=== PATIENT | male | born 1945 | race Caucasian/White ===

== ENCOUNTER 2023-09-30 19:41 | Inpatient (IN) | payer OTHER, SELFPAY ==
[2023-09-20 09:48] VITALS: BMI 31.9
[2023-09-30] VITALS (18 sets, daily range): BP systolic 103–168; BP diastolic 62–87; PULSE 60–106; RESP 11–24; TEMP 36.3–36.5; O2SAT 94–100; BMI 31.9; BMI 33.5
--- NOTE | 2023-09-30 | DI.RAD.S_ITS ---
PROCEDURE: XR HIP W PEL IF DONE RT 2V INDICATIONS: INTRA OP RIGHT HIP TECHNIQUE: AP pelvis and lateral view of the right hip acquired. COMPARISON: None. FINDINGS: Patient is status post right hip arthroplasty, with hardware components in expected positions. IMPRESSION: Two intraoperative radiographs demonstrating right hip arthroplasty with prosthetic elements in appropriate position. Dictated by: Kellie Daniels M.D. on 09/30/2023 at 19:37 Approved by: Kellie Daniels M.D. on 09/30/2023 at 19:38
--- NOTE | 2023-09-30 06:00 | DI.RAD.S_ITS ---
PROCEDURE: XR HIP W PEL IF DONE RT 2V INDICATIONS: INNER OP TECHNIQUE: AP pelvis and lateral view of the right hip acquired. 3 images. COMPARISON: [facility], [place], XR HIP W PEL IF DONE RT 2V, 09/30/2023, 16:09. FINDINGS: Bones: Patient is status post right hip arthroplasty, with hardware components in expected positions. The hip joint appears congruent. The visualized bony structures appear intact. Soft tissues: Overlying postoperative changes are noted. No suspicious soft tissue densities. IMPRESSION: Expected post-operative appearance of the right hip arthroplasty. Dictated by: Jerry Yang M.D. on 10/01/2023 at 8:42 Approved by: Jerry Yang M.D. on 10/01/2023 at 8:43
[2023-09-30] MEDS: ACETAMINOPHEN 325 MG TABLET 975 MG PO (12:50)
[2023-09-30] MEDS: MELOXICAM 7.5 MG TABLET PO (12:51)
--- NOTE | 2023-09-30 12:53 | P.PN_ITS ---
Exam Vital Signs (past 8 hours): - 09/30/23 12:31 Temperature 97.3 F L Pulse Rate 60 Respiratory Rate 16 Blood Pressure 128/69 Pulse Oximetry 99 Oxygen Delivery Method Room Air Oxygen Delivery Method Room Air Narrative Exam Narrative: Spoke with Dr. Frederick Nails (lubrication equipment servicer) on 09/30/23 at 1250 regarding patient's history of paroxysmal Afib, pacemaker, and Warfarin use. Patient stopped taking Warfarin on 09/24/[address] Nails, he is cleared to have total hip replacement without requiring Lovenox bridge. He is to restart Warfarin one week after surgery. I personally educated patient about the risk of going into Afib and possible CVA. INR 1.1, EKG - Atrial-paced with prolonged AV conduction, rate 60. PFSH Medical History (Updated 09/20/23 @ 12:33 by Rahda Vale RN) Bradycardia Hx of diastolic dysfunction NSVT (nonsustained ventricular tachycardia) CAD (coronary artery disease) PAF (paroxysmal atrial fibrillation) Skin cancer Chronotropic incompetence History of cardioversion HLD (hyperlipidemia) HTN (hypertension) Post-nasal drip Afib Osteoarthritis Pacemaker (~2019) LAMBERTO on CPAP Surgical History (Updated 09/20/23 @ 10:23 by Radha Vale RN) H/O arthroscopy of right knee H/O arthroscopy of left knee Hx of tonsillectomy History of biopsy Social History household members: spouse Smoking Status: Never smoker alcohol intake: former
[2023-09-30] MEDS: LACTATED RINGERS 1,000 ML 42 ML IV ×3 (12:54→17:08)
[2023-09-30 12:58] LABS: INR 1.1 (0.9-1.3)
--- NOTE | 2023-09-30 13:19 | P.OP.PRE_ITS ---
Pre-operative Note Interval Note History & Physical reviewed/Exam performed by Physician: Yes Changes to H&P: No H&P completed within 30 days and has changed as indicated here:: Plan to resume warfarin one week postop. Will utilize aspirin 81 BID until that time. Plan discussed previously with patient's technology strategist
--- NOTE | 2023-09-30 13:49 | PM.OP.1 ---
Operative Date/Time/Diagnoses Date of procedure: 09/30/23 Pre-op diagnosis: Right hip arthritis Post-op diagnosis: same Procedure & Clinicians Procedure: Right total hip arthroplasty ([id number]) Same procedure as scheduled: Yes Surgeon: Neftali Tafoya Balance Wheel Facer: Feliciano Goodrich Anesthesia Type: Spinal, Sedation and Local Operative Notes Prosthetic devices, grafts, tissues, transplants, or devices: [place] 56 mm acetabular cup with modular dual mobility liner, size 8 high offset Actis stem, and +8 28 mm inner diameter, 49 mm outer diameter dual mobility head Estimated Blood Loss (mL): 800 Procedure in detail: This 78-year-old male patient was seen in clinic and evaluated for right hip pain. He was found to have radiographic findings consistent with severe arthritic changes in his hip and physical exam findings which correlated with this. He was counseled regarding the risks and benefits of surgery and wished to proceed. His past medical history was significant for the prior placement of a pacemaker for which he was maintained on warfarin. Due to concerns about the possibility of difficulty controlling his INR postoperatively I inquired with his digital marketing program manager regarding postoperative anticoagulation. I personally spoke with the digital marketing program manager and inquired as to the feasibility of transitioning him either to Lovenox or a DOAC due to my concerns about the potential bleeding risks associated with warfarin because of challenges with dosing which could result in the INR becoming elevated beyond desired parameters. His digital marketing program manager preferred to maintain him on warfarin therapy and felt that it would be appropriate to hold it for a week postoperatively. He recommended stopping it a week in advance of surgery. He did not feel that bridge therapy with an agent such as Lovenox would be necessary. The patient was met in the preoperative holding area and details of surgery were discussed at length. All questions were answered. Informed consent was signed in the operative site was marked. His preoperative INR was measured at 1.1. He was brought back to the operating room. The assistance of a physician driller's assistant was required throughout the procedure for room set up, positioning, soft tissue retraction, and wound closure. General anesthesia was induced. He was transferred to the [place] table and all bony prominences were padded. A time-out procedure was performed. Tranexamic acid and Ancef were administered prior to incision. A direct anterior approach the hip was utilized. The TFL was identified and the fascia overlying it was incised. Retractors were placed superior and inferior to the femoral neck and a self retainer was placed in the interval between the rectus and the TFL. The lateral circumflex vessels were identified and coagulated. A retractor was placed onto the anterior wall and reflected head of rectus was released under tension. At this time I noted bleeding coming from the ilium. This was slowed with electrocautery but continued to ooze.. I therefore performed a capsulotomy, placed tag stitches, and placed a soft tissue protector into the wound between rectus and TFL. Once this was tensioned up into the area around the ilium the bleeding. This successfully tamponaded the bleeding which had been encountered in that region. Cobra retractors were replaced intracapsularly inside the superior and inferior leaflets. The soft tissues were noted to continue to bleed more than normal diffusely throughout the wound. At this time I therefore elected to open a werewolf electrocautery device. This was able to slow the bleeding particularly coming from medial near the lesser trochanter and was utilized throughout the remainder of the procedure to attempt to limit blood loss. The lesser trochanter was identified and a neck resection was measured based off of preoperative templating based on that landmark. The neck was resected and a napkin ring was additionally resected. Both of these were removed. Retractors were placed onto the anterior and posterior wall. The labrum was resected sharply and the pulvinar was resected with the aid of the werewolf device. A 55 mm Reamer was used to ream to the floor of the acetabulum. Punctate bleeding bone was noted throughout the reamed hemisphere. I inserted a 56 mm cup and verified appropriate positioning in terms of anteversion and abduction angles on an AP fluoroscopic image which was matched to the preoperative standing radiograph. I elected not to place any screws as there was considerable bleeding occurring through the holes in the cup and I wanted to tamponade this as quickly as I could. I impacted in place a 36 mm liner and verified that it had achieved an appropriate seal with the acetabular cup. All retractors were removed. I performed a lateral capsular release off of the greater trochanter with the hip in neutral extension and traction. This position the lateral leaflet of the capsulotomy to be pulled over to the medial side. The hip was externally rotated to 90?. A [place] hook was placed underneath the femur and used to pull the hip away from the greater trochanter while hyperextending and adducting. Retractors were placed over the calcar and the greater trochanter and the hip was additionally rotated to 140?. In this position I was able to elevate the femur and gain access to the canal. The canal was opened bluntly with a rongeur and a rasp was used to clear cancellous bone. I broached up to a size 6 femur which was larger than the templated size of 5. Retractors were removed, the hip was carefully returned to neutral extension and reduced. It was noted to be significantly unstable with maximum external rotation as well as with a 45 degree drop test. Fluoroscopy indicated that the hip was short and that the stem was undersized. I therefore returned to the broaching and replaced all of the retractors. I noted that after trialing the broach did not have good rotational stability. I was able to broach from a size 6 up to a size 8. I had improved rotational stability with that size broach. The size 8 broach sat more proud than the size 6 broach and I had calcar planed with the size 6 broach so I anticipated a gap between the collar and calcar in my eventual implant. I placed a standard offset stem and a +5 head on the size 8 broach. I removed all the retractors and returned to neutral hip extension. I reduced the hip and noted appropriate fluoroscopic leg length on an AP pelvis which matched the preoperative standing radiograph however the patient was still unstable with maximum external rotation and a 45 degree drop test. I therefore removed the neck and head and replaced them with a high offset neck and a +8.5 head. With this combination I was able to achieve stability with a maximum external rotation test as well as a 45 degree drop test. I therefore returned to the broaching position, replaced all the retractors, and placed a size 8 high offset Actis stem. I placed a +8.5 head trial on that. I returned to the reduced position and again noted appropriate stability with maximum external rotation as well as a 45 degree drop test. I still noted however that the soft tissues felt somewhat lax and I was able to manually Shuck the hip several mm. I obtained fluoroscopy with this combination which indicated that I had likely increased his [place] offset and had also slightly lengthened him. I did not feel that I had excessively lengthened him or excessively increased his offset. The hip was stable with stability testing at this point as well. However due to the ongoing laxity they noted with manual testing I elected to convert to a dual mobility. I placed retractors over the anterior and posterior wall and placed the stem posterior to the acetabular component. I removed the polyethylene liner with 2 osteotomes, cleaned the inner surface of the cup, and impacted into place a dual mobility liner. I placed a +8.5 dual mobility head trial on the stem and repeated all the stability testing. The hip remained stable with that construct. I therefore opened the corresponding dual mobility head implants and assembled them on the back table, returned to the broach in position, replaced retractors, and impacted that head into place. I obtained fluoroscopy that indicated I had slightly lengthened and slightly increased the offset of the hip. I again performed a maximum external rotation test and a 45 degree drop test and had good stability with both. I closed the capsule with a running Ethibond suture and vigorously tested the stability of the hip. I maximally and forcefully externally rotated the hip by grabbing the [place] table boot and distracting and externally rotating is forcefully as I could. I was unable to dislocate the hip. The repair of the capsule remained intact with this vigorous stressing. I therefore based the soft tissues in a dilute mixture of Betadine and peroxide, and closed the hip using a combination of Stratafix and Monocryl sutures. During the closure of the superficial wound the anesthesiologist noted that the patient had had [address] elevations on the monitor. In anticipation potential need for aggressive anticoagulation I therefore elected to close the hip wound with running 3-0 Monocryl Stratafix suture and back this up with a running 2 0 nylon suture alternating between horizontal mattress and simple stitches. Additionally in anticipation of potential need for anticoagulation placed a clari incisional wound VAC dressing over the wound. The drapes were taken down and I placed a hip spica dressing around the hip again in anticipation of potential need for anticoagulation. An EKG was obtained in the operating room which did not demonstrate any ST elevations. Troponins were obtained which likewise did not demonstrate any elevations. The patient has a pacemaker and has remained in a appropriate paced rhythm without recurrence of the ST elevations which were noted during the surgery. Because of these EKG changes I have arranged to admit the patient to the ICU. I have called the tele assistant manager for our hospital as well as the on-call digital marketing program manager and consulted them regarding the patient's EKG changes during the surgery. Postoperatively he has had stable hemodynamics and appropriate mentation. He is currently being transported to the ICU for monitoring of his cardiac status Post-operative Plan for aftercare: 1. With regard to the patient's cardiac condition he is being monitored by the tele assistant manager at our hospital and is receiving ICU level care. I have ordered repeat troponins. His initial troponins were negative. I have also ordered a repeat CBC given the blood loss which was encountered during the surgery. His initial CBC indicated a hemoglobin of 12. 2. Should aggressive anticoagulation be needed due to the patient's cardiac condition it should not be held due to any considerations regarding his hip. I have placed nylon sutures, a incisional wound VAC, and a hip spica dressing over the wound. Are all which I would not otherwise have done in his case and our intended to limit any bleeding should he require aggressive anticoagulation due to his cardiac condition 3. He is weight-bearing as tolerated 4. He should follow anterior hip precautions 5. Follow up in 2 weeks with our clinic once he was eventually stable from a medical perspective to discharge home
[2023-09-30] MEDS: CEFAZOLIN 2 GM/100 ML PREMIX 100 ML IV ×2 (15:00→21:57)
[2023-09-30] MEDS: TRANEXAMIC ACID 1,000 MG VIAL 1000 MG INJ (15:00)
--- NOTE | 2023-09-30 15:27 | SUR.OPER ---
Patient supine on padded [place] table, bilateral arms on padded arm board at <90, both legs secured in padded traction boots and positioned per surgeon, padded post at patient's groin, genitals checked and free from pressure, pressure points checked and padded.
[2023-09-30] MEDS: ROPIVACAINE/EPI/CLONIDINE/KET 50 ML SYRINGE INJ (15:44)
--- NOTE | 2023-09-30 16:45 | SUR.OPER ---
Patient came in with gold colored ring. Placed in specimen container and labeled.
[2023-09-30 17:35] LABS: Add Manual Diff / Slide Review NO; Basophils Absolute Auto 100 /uL (0-100); Basophils Percent Auto 0.4 % (0-2); Eosinophils Absolute Auto 100 /uL (0-450); Eosinophils Percent Auto 0.7 % (2-4); Hematocrit 37.4 % (41-53); Hemoglobin 12.6 g/dL (13.5-17.5); Lymphocytes Absolute Auto 1300 /uL (1100-4500); Lymphocytes Percent Auto 8.5 % (25-40); Mean Corpuscular HGB Conc 33.7 % (30-36); Mean Corpuscular Hemoglobin 30.4 PG (26-34); Mean Corpuscular Volume 90.1 fL (80-100); Monocytes Absolute Auto 300 /uL (0-900); Monocytes Percent Auto 2.2 % (3-14); Neutrophils Absolute Auto 13300 /uL (1500-7000); Neutrophils Percent Auto 88.2 % (50-75); Platelet Count 203 X10^3/uL (150-400); Red Blood Cell Count 4.15 X10^6/uL (4.5-5.9); Red Cell Distribution Width 13.1 % (11.6-14.8); White Blood Cell Count 15.1 X10^3/uL (4.5-11.0)
[2023-09-30 18:27] LABS: Alanine Aminotransferase 16 IU/L (<50); Albumin Globulin Ratio 1.1 (1.0-2.8); Alkaline Phosphatase 74 U/L (38-126); Aspartate Aminotransferase 32 IU/L (17-59); BUN Creatinine Ratio 18.1 (6-22); Bilirubin Total 0.7 mg/dL (0.2-1.3); Blood Urea Nitrogen 15 mg/dL (9-20); Calcium 8.4 mg/dL (8.4-10.2); Carbon Dioxide 27 mmol/L (22-32); Chloride 106 mmol/L (98-107); Creatine Kinase 233 U/L (55-170); Estimated Glomerular Filt Rate > 60 mL/min (>60); Globulin 2.7 g/dL (1.7-4.1); Glucose 138 mg/dL (80-110); HEMOLYSIS < 15 (0-50); Potassium 4.4 mmol/L (3.4-5.1); Sodium 135 mmol/L (137-145); Total Protein 5.7 g/dL (6.3-8.2)
[2023-09-30 18:38] LABS: Troponin I < 0.012 ng/mL (0.01-0.034)
--- NOTE | 2023-09-30 18:43 | SUR.PHASEI ---
Patient to PACU with nursing staff and anesthesia, extubated prior to transfer. EKG done in OR due to possibility of previous arrythmia. No abnormalities noted on EKG per anesthesia. VSS on arrival to PACU; patient still not able to follow all commands and falls asleep easily. Awaiting results of Troponin. Dressing to right hip clean, dry and intact.
--- NOTE | 2023-09-30 19:14 | SUR.PHASEI ---
Patient remains confused. Able to tell this nurse his name and but still remains confused about his location and why he is in the hospital. Patient states that he thinks he's at home. Patient denies headache, blurred vision or any other neuro complaints. Following commands when prompted by nurse but remains confused. Dr Tafoya contacting hospitalist to obtain transfer to ICU.
[2023-09-30 19:40] LABS: Magnesium 1.7 mg/dL (1.6-2.3)
[2023-09-30] MEDS: METOPROLOL TARTRATE 5 MG/5 ML INJ IV (19:40)
--- NOTE | 2023-09-30 20:33 | SUR.PHASEI ---
Report given to JESUSITA Rosas; patient transferred to ICU room 227 in stable condition on apprentice stylist and oxygen at 3 liters via nasal cannula.
[2023-09-30 21:22] LABS: Creatine Kinase 452 U/L (55-170)
[2023-09-30 21:35] LABS: Troponin I < 0.012 ng/mL (0.01-0.034)
--- NOTE | 2023-09-30 21:41 | P.TELICUCN_ITS ---
History of Present Illness Consult details IF CAMERA ACTIVATED, patient seen via real-time interactive audiovisual communication: Camera activated Chief complaint: Right Total Hip Arthroplasty/Anterior Consent obtained for tele-hydrometallurgical engineer care: Yes Patient Location: ICU Provider location (State): [place] Other participants/roles: MD & RN Narrative: This 78-year-old male patient with H/O of HTN, pacemaker on warfarin, H/o of of severe Rt hip s/p arthroplasty, EBL 800 ML, intra operatively noted to have ST elevation on the monitor for about 2 min, 12 lead EKG was done and repeated multiple times negative for any specific ST or T wave changes, trop x 1 negative, pt HD stable intra operatively, currently denies any CP or discomfort or SOB Assessment: S/P Rt total hip arthroplasty Eval for ST elevation intra operatively S/P pacemaker HTN Plan: Trending Trop & EKG, pending 2 nd trop and CBC 2 D echo Card consulted, need medical records Pain mgt Has johnson/ close I/O Continue home lasix, metoprolol and lisinopril SCD PFSH Medical History (Updated 09/20/23 @ 12:33 by Radha Vale RN) Bradycardia Hx of diastolic dysfunction NSVT (nonsustained ventricular tachycardia) CAD (coronary artery disease) PAF (paroxysmal atrial fibrillation) Skin cancer Chronotropic incompetence History of cardioversion HLD (hyperlipidemia) HTN (hypertension) Post-nasal drip Afib Osteoarthritis Pacemaker (~2019) LAMBERTO on CPAP Surgical History (Updated 09/20/23 @ 10:23 by Radha Vale RN) H/O arthroscopy of right knee H/O arthroscopy of left knee Hx of tonsillectomy History of biopsy Social History household members: spouse Smoking Status: Never smoker alcohol intake: former Current Medications Current Medications Medications: Home Medications acetaminophen 500 mg tablet 1,000 mg PO Q6H PRN Pain 09/20/23 [History Confirmed 09/20/23] aspirin 81 mg capsule 81 mg PO DAILY 09/20/23 [History Confirmed 09/29/23] atorvastatin 40 mg tablet 40 mg PO BEDTIME 09/20/23 [History Confirmed 09/20/23] fluticasone propionate 50 mcg/actuation nasal spray,suspension 2 spray intranasal BEDTIME 09/20/23 [History Confirmed 09/20/23] furosemide 20 mg tablet 10 mg PO DAILY 09/20/23 [History Confirmed 09/20/23] lisinopril 5 mg tablet 5 mg PO DAILY 09/20/23 [History Confirmed 09/20/23] loratadine 10 mg tablet 10 mg PO DAILY 09/20/23 [History Confirmed 09/20/23] metoprolol succinate 25 mg tablet,extended release 24 hr 25 mg PO BID 09/20/23 [History Confirmed 09/20/23] montelukast 10 mg tablet 10 mg PO DAILY 09/20/23 [History Confirmed 09/20/23] potassium chloride 10 mEq capsule,extended release 10 meq PO DAILY 09/20/23 [History Confirmed 09/20/23] pregabalin 50 mg capsule 50 mg PO BID 09/20/23 [History Confirmed 09/20/23] warfarin 5 mg tablet 5 mg PO DIRECTED 09/20/23 [History Confirmed 09/29/23] Exam Vital Signs (past 8 hours): - 09/30/23 18:37 09/30/23 18:42 09/30/23 18:54 Temperature 97.4 F L Pulse Rate 68 68 67 Respiratory Rate 12 21 12 Blood Pressure 136/86 140/77 150/80 H Pulse Oximetry 98 98 99 Oxygen Delivery Method Nasal Cannula Nasal Cannula Nasal Cannula Oxygen Flow Rate 4 4 3 09/30/23 18:56 09/30/23 19:06 09/30/23 19:36 Temperature Pulse Rate 66 64 103 H Respiratory Rate 11 L 11 L 15 Blood Pressure 154/75 H 136/76 146/87 H Pulse Oximetry 97 96 98 Oxygen Delivery Method Room Air Nasal Cannula Nasal Cannula Oxygen Flow Rate 3 3 09/30/23 19:39 09/30/23 19:59 09/30/23 20:15 Temperature 97.5 F L Pulse Rate 95 H 98 H 65 Respiratory Rate 11 L 12 12 Blood Pressure 129/81 132/84 148/83 H Pulse Oximetry 98 96 99 Oxygen Delivery Method Nasal Cannula Nasal Cannula Nasal Cannula Oxygen Flow Rate 3 3 09/30/23 20:55 09/30/23 21:00 09/30/23 21:00 Temperature 97.7 F Pulse Rate 66 62 Respiratory Rate 14 12 Blood Pressure 134/72 Pulse Oximetry 100 98 Oxygen Delivery Method Oxygen Flow Rate 3 Oxygen Delivery Method Nasal Cannula Oxygen Flow Rate 3 Objective Labs 09/30/23 17:19 09/30/23 18:00 Labs: Laboratory Results - last 24 hr 09/30/23 09/30/23 09/30/23 11:48 17:18 17:19 WBC 15.1 H RBC 4.15 L Hgb 12.6 L Hct 37.4 L MCV 90.1 MCH 30.4 MCHC 33.7 RDW 13.1 Plt Count 203 Neut % (Auto) 88.2 H Lymph % (Auto) 8.5 L [place] % (Auto) 2.2 L Eos % (Auto) 0.7 L Baso % (Auto) 0.4 Neut # (Auto) 56907 H Lymph # (Auto) 1300 [place] # (Auto) 300 Eos # (Auto) 100 Baso # (Auto) 100 PT 13.0 H INR 1.1 Sodium Potassium Chloride Carbon Dioxide BUN Creatinine Estimated GFR BUN/Creatinine Ratio Glucose Calcium Magnesium Total Bilirubin AST ALT Alkaline Phosphatase Total Creatine Kinase Troponin I Total Protein Albumin Globulin Albumin/Globulin Ratio Blood Type O Positive Antibody Screen Negative Crossmatch See Detail 09/30/23 09/30/23 18:00 20:54 WBC RBC Hgb Hct MCV MCH MCHC RDW Plt Count Neut % (Auto) Lymph % (Auto) [place] % (Auto) Eos % (Auto) Baso % (Auto) Neut # (Auto) Lymph # (Auto) [place] # (Auto) Eos # (Auto) Baso # (Auto) PT INR Sodium 135 L Potassium 4.4 Chloride 106 Carbon Dioxide 27 BUN 15 Creatinine 0.83 Estimated GFR > 60 BUN/Creatinine Ratio 18.1 Glucose 138 H Calcium 8.4 Magnesium 1.7 Total Bilirubin 0.7 AST 32 ALT 16 Alkaline Phosphatase 74 Total Creatine Kinase 233 H 452 H D Troponin I < 0.012 < 0.012 Total Protein 5.7 L Albumin 3.0 L Globulin 2.7 Albumin/Globulin Ratio 1.1 Blood Type Antibody Screen Crossmatch
[2023-09-30] MEDS: ATORVASTATIN 20 MG TABLET 40 MG PO (21:57)
[2023-09-30] MEDS: DOCUSATE 100 MG CAPSULE PO (21:57)
[2023-09-30] MEDS: FLUTICASONE 120 SPRAY/16 GM SPRAY.SUSP NASAL (21:57)
[2023-09-30] MEDS: ACETAMINOPHEN 325 MG TABLET 650 MG PO (21:57)
[2023-09-30] MEDS: IBUPROFEN 600 MG TABLET PO (21:58)
[2023-09-30] MEDS: METOPROLOL ER 25 MG TABLET PO (21:58)
[2023-09-30] MEDS: PREGABALIN 50 MG CAPSULE PO (21:58)
[2023-09-30 22:19] LABS: MRSA (Nasal) PCR Not Detected (Not Detect)
[2023-09-30] MEDS: diphenhydrAMINE 50 MG/ML VIAL 25 MG IV (23:22)
[2023-09-30] MEDS: MAGNESIUM SULFATE 2 GM/50 ML PIGGYBACK IV (23:22)
[2023-10-01] VITALS (24 sets, daily range): BP systolic 103–139; BP diastolic 55–75; PULSE 60–104; RESP 11–26; TEMP 36.3–37; O2SAT 97–99
--- NOTE | 2023-10-01 00:29 | PC.NURSE ---
2039--rec'd pt from PACU awake and alert, denies c/o hip pain, chest pain, or sob; dressing and FLORINDA to right hip CDI; no family at bedside at this time; o2/3l/nc; NSR on monitor at this time
--- NOTE | 2023-10-01 00:39 | PC.NURSE ---
8023--Dr Tafoya at bedside; Dr Quinonez on monitor; status report given to both; they both spoke to pt and to each other; pt continues to deny any complaints at this time; clear liquids given po
--- NOTE | 2023-10-01 00:42 | PC.NURSE ---
7037--pt has converted to a wide complex rhythm with a rate in the low 100s; pt denies c/o chest pain or shortness of breath; he does report mild itching to arms and legs, which he reports getting at home when he takes metoprolol; video call with Dr Quinonez at pt's bedside; status report given and orders rec'd; benadryl 25mg iv and magnesium sulfate 2gm ivpb given
--- NOTE | 2023-10-01 00:49 | PC.NURSE ---
2303--pt reports tightness to back of right thigh; called Dr Tafoya; ok to remove FLORINDA; FLORINDA removed and pt reports immediate relief; dressing and clari drain to right hip CDI; pt denies numbness or tingling to right leg and foot; able to move leg and foot, but not lift leg off bed; denies c/o pain
[2023-10-01 02:13] LABS: Hematocrit 34.6 % (41-53)
[2023-10-01 02:51] LABS: Troponin I < 0.012 ng/mL (0.01-0.034)
[2023-10-01] MEDS: IBUPROFEN 600 MG TABLET PO ×3 (04:06→21:39)
[2023-10-01] MEDS: ACETAMINOPHEN 325 MG TABLET 650 MG PO ×3 (04:07→21:37)
[2023-10-01] MEDS: CEFAZOLIN 2 GM/100 ML PREMIX 100 ML IV (04:47)
[2023-10-01 06:04] LABS: Hematocrit 32.8 % (41-53); Hemoglobin 11.2 g/dL (13.5-17.5)
[2023-10-01 06:28] LABS: Troponin I < 0.012 ng/mL (0.01-0.034)
--- NOTE | 2023-10-01 06:53 | PC.NURSE ---
pt sleeping at this time; HR-60; bruising noted to right hip; dressing clean, dry, and intact; clari drain in place
--- NOTE | 2023-10-01 07:44 | PM.PNPO.1 ---
Subjective Subjective Date Patient Seen: 10/01/23 Time Patient Seen: 07:44 Interval history: Mr Choudhury was seen in conjunction w/ Dr Tafoya this morning. He is sitting up in bed and having very little pain. He reports he didn't sleep all night d/t anxiety over possible intraop ND. In review of records and speaking w/ Dr Tafoya, while the pts incision was being closed at the end of surgery yesterday, the anesthesiologist noticed a brief run of ST elevation on the monitor. Pts troponins have thus far been negative, and serial EKGs have also been normal. Teleintensivist mentioned 2D echo as part of their plan; unsure if this has been ordered. Pt has pacemaker and was on warfarin preoperatively; will restart this today rather than waiting a week as planned in light of possible ACS. Exam Vital Signs (past 8 hours): - 10/01/23 00:00 10/01/23 00:00 10/01/23 00:30 Temperature 97.3 F L Pulse Rate 104 H 101 H Respiratory Rate 13 13 Blood Pressure 106/75 Pulse Oximetry 97 97 Oxygen Flow Rate 3 10/01/23 01:00 10/01/23 01:00 10/01/23 02:00 Temperature Pulse Rate 100 H 61 Respiratory Rate 11 L 22 Blood Pressure 105/65 Pulse Oximetry 97 97 Oxygen Flow Rate 3 10/01/23 02:00 10/01/23 03:00 10/01/23 03:00 Temperature Pulse Rate 60 Respiratory Rate 16 Blood Pressure 103/68 108/59 L Pulse Oximetry 97 Oxygen Flow Rate 3 3 10/01/23 04:00 10/01/23 04:00 10/01/23 05:00 Temperature 97.5 F L Pulse Rate 60 61 Respiratory Rate 18 14 Blood Pressure 104/60 Pulse Oximetry 98 97 Oxygen Flow Rate 3 10/01/23 05:00 10/01/23 06:00 10/01/23 06:00 Temperature Pulse Rate 60 Respiratory Rate 15 Blood Pressure 106/57 L 107/56 L Pulse Oximetry 97 Oxygen Flow Rate 3 3 10/01/23 07:00 10/01/23 07:00 Temperature Pulse Rate 60 Respiratory Rate 15 Blood Pressure 107/58 L Pulse Oximetry 98 Oxygen Flow Rate Oxygen Delivery Method Nasal Cannula Oxygen Flow Rate 3 Narrative Exam Narrative: 5/5 strength in hip flexors, quadriceps, hamstrings, DF, PF, EHL on right. Sensation to light touch intact throughout RLE. Calf soft, compressible, nontender. DANIEL dressing functioning, CDI. Objective Labs 10/01/23 05:55 09/30/23 18:00 Labs: Laboratory Results - last 24 hr 09/30/23 09/30/23 09/30/23 11:48 17:18 17:19 WBC 15.1 H RBC 4.15 L Hgb 12.6 L Hct 37.4 L MCV 90.1 MCH 30.4 MCHC 33.7 RDW 13.1 Plt Count 203 Neut % (Auto) 88.2 H Lymph % (Auto) 8.5 L [place] % (Auto) 2.2 L Eos % (Auto) 0.7 L Baso % (Auto) 0.4 Neut # (Auto) 23969 H Lymph # (Auto) 1300 [place] # (Auto) 300 Eos # (Auto) 100 Baso # (Auto) 100 PT 13.0 H INR 1.1 Sodium Potassium Chloride Carbon Dioxide BUN Creatinine Estimated GFR BUN/Creatinine Ratio Glucose Calcium Magnesium Total Bilirubin AST ALT Alkaline Phosphatase Total Creatine Kinase Troponin I Total Protein Albumin Globulin Albumin/Globulin Ratio Nasal Screen MRSA (PCR) Blood Type O Positive Antibody Screen Negative Crossmatch See Detail 09/30/23 09/30/23 09/30/23 18:00 20:54 20:56 WBC RBC Hgb Hct MCV MCH MCHC RDW Plt Count Neut % (Auto) Lymph % (Auto) [place] % (Auto) Eos % (Auto) Baso % (Auto) Neut # (Auto) Lymph # (Auto) [place] # (Auto) Eos # (Auto) Baso # (Auto) PT INR Sodium 135 L Potassium 4.4 Chloride 106 Carbon Dioxide 27 BUN 15 Creatinine 0.83 Estimated GFR > 60 BUN/Creatinine Ratio 18.1 Glucose 138 H Calcium 8.4 Magnesium 1.7 Total Bilirubin 0.7 AST 32 ALT 16 Alkaline Phosphatase 74 Total Creatine Kinase 233 H 452 H D Troponin I < 0.012 < 0.012 Total Protein 5.7 L Albumin 3.0 L Globulin 2.7 Albumin/Globulin Ratio 1.1 Nasal Screen MRSA (PCR) Not detected Blood Type Antibody Screen Crossmatch 10/01/23 10/01/23 01:55 05:55 WBC RBC Hgb 12.0 L 11.2 L Hct 34.6 L 32.8 L MCV MCH MCHC RDW Plt Count Neut % (Auto) Lymph % (Auto) [place] % (Auto) Eos % (Auto) Baso % (Auto) Neut # (Auto) Lymph # (Auto) [place] # (Auto) Eos # (Auto) Baso # (Auto) PT INR Sodium Potassium Chloride Carbon Dioxide BUN Creatinine Estimated GFR BUN/Creatinine Ratio Glucose Calcium Magnesium Total Bilirubin AST ALT Alkaline Phosphatase Total Creatine Kinase Troponin I < 0.012 < 0.012 Total Protein Albumin Globulin Albumin/Globulin Ratio Nasal Screen MRSA (PCR) Blood Type Antibody Screen Crossmatch [facility] Medical History (Updated 09/20/23 @ 12:33 by Radha Vale RN) Bradycardia Hx of diastolic dysfunction NSVT (nonsustained ventricular tachycardia) CAD (coronary artery disease) PAF (paroxysmal atrial fibrillation) Skin cancer Chronotropic incompetence History of cardioversion HLD (hyperlipidemia) HTN (hypertension) Post-nasal drip Afib Osteoarthritis Pacemaker (~2019) LAMBERTO on CPAP Surgical History (Updated 10/01/23 @ 07:50 by Edelmira Emerson PA-C) H/O arthroscopy of right knee H/O arthroscopy of left knee Hx of tonsillectomy History of biopsy Social History household members: spouse Smoking Status: Never smoker alcohol intake: former Assessment & Plan Post-op Assessment and plan (1) S/P total hip arthroplasty: Assessment and Plan narrative: s/p R HÉCTOR, c/b a brief period of ST elevation changes at the end of the case. At this point, serial troponins and EKGs have been normal. Will transfer to acute medical unit and consult hospitalist service - I d/w Dr Tom this morning and he agreed to follow pt. Will restart warfarin at home dosing rate: 5mg on Fridays and Tuesdays, 7.5mg on other days. D/C johnson. Pt reports no h/o urinary retention. WBAT to right leg, start PT and OT today. Anticipate discharge home tomorrow w/ spouse pending progress w/ PT today and medical clearance from hospitalist service. Postoperative Procedures: Procedures Operation Date: 09/30/23 12:45 Actual Procedure Side Surgeon p Total Hip Arthroplasty/Anterior Approach Right Neftali Tafoya MD Postoperative day: 1 Quality VTE Deep Vein Thrombosis/Pulmonary Embolism Present on Admission: No
--- NOTE | 2023-10-01 07:51 | PM.CN ---
History of Present Illness Consult details Date Patient Seen: 10/01/23 Chief complaint: Right Total Hip Arthroplasty/Anterior Narrative: Robbie Choudhury is a 78yo M with PMH of NSVT s/p pacemaker, A-fib on warfarin, CAD, HTN, HLD, LAMBERTO and obesity who underwent R total hip on 09/30 and had 2min of intra-op ST elevation on monitor. Medicine consulted for management. Subsequent EKG's showed no ST elevation. Trops have been negative. Echo is ordered and pending. Patient may need nuclear stress test to risk stratify his level of coronary disease burden and if ST elevation seen on monitor was clinically significant despite all other testing being negative. Patient denies any recent chest pain. Says he has had 2 prior stress tests which were normal. Follows with Dr. Frederick Delong field checker in [place]. No NV, CP, SOB, abd pain or diarrhea currently. Meds Home Medications and Allergies Home Medications Medication Instructions Recorded Confirmed Type acetaminophen 500 mg tablet 1,000 mg PO Q6H PRN Pain 09/20/23 09/20/23 History aspirin 81 mg capsule 81 mg PO DAILY 09/20/23 09/29/23 History atorvastatin 40 mg tablet 40 mg PO BEDTIME 09/20/23 09/20/23 History fluticasone propionate 50 2 spray intranasal BEDTIME 09/20/23 09/20/23 History mcg/actuation nasal spray,suspension furosemide 20 mg tablet 10 mg PO DAILY 09/20/23 09/20/23 History lisinopril 5 mg tablet 5 mg PO DAILY 09/20/23 09/20/23 History loratadine 10 mg tablet 10 mg PO DAILY 09/20/23 09/20/23 History metoprolol succinate 25 mg 25 mg PO BID 09/20/23 09/20/23 History tablet,extended release 24 hr montelukast 10 mg tablet 10 mg PO DAILY 09/20/23 09/20/23 History potassium chloride 10 mEq 10 meq PO DAILY 09/20/23 09/20/23 History capsule,extended release pregabalin 50 mg capsule 50 mg PO BID 09/20/23 09/20/23 History warfarin 5 mg tablet 5 mg PO DIRECTED 09/20/23 09/29/23 History Allergies Allergy/AdvReac Type Severity Reaction Status Date / Time No Known Drug Allergies Allergy Verified 09/20/23 10:15 Review of Systems Review of Systems Narrative: All other systems reviewed with the patient and are negative unless otherwise stated. Exam Vital Signs (past 8 hours): - 10/01/23 00:00 10/01/23 00:00 10/01/23 00:30 Temperature 97.3 F L Pulse Rate 104 H 101 H Respiratory Rate 13 13 Blood Pressure 106/75 Pulse Oximetry 97 97 Oxygen Flow Rate 3 10/01/23 01:00 10/01/23 01:00 10/01/23 02:00 Temperature Pulse Rate 100 H 61 Respiratory Rate 11 L 22 Blood Pressure 105/65 Pulse Oximetry 97 97 Oxygen Flow Rate 3 10/01/23 02:00 10/01/23 03:00 10/01/23 03:00 Temperature Pulse Rate 60 Respiratory Rate 16 Blood Pressure 103/68 108/59 L Pulse Oximetry 97 Oxygen Flow Rate 3 3 10/01/23 04:00 10/01/23 04:00 10/01/23 05:00 Temperature 97.5 F L Pulse Rate 60 61 Respiratory Rate 18 14 Blood Pressure 104/60 Pulse Oximetry 98 97 Oxygen Flow Rate 3 10/01/23 05:00 10/01/23 06:00 10/01/23 06:00 Temperature Pulse Rate 60 Respiratory Rate 15 Blood Pressure 106/57 L 107/56 L Pulse Oximetry 97 Oxygen Flow Rate 3 3 10/01/23 07:00 10/01/23 07:00 Temperature Pulse Rate 60 Respiratory Rate 15 Blood Pressure 107/58 L Pulse Oximetry 98 Oxygen Flow Rate Oxygen Delivery Method Nasal Cannula Oxygen Flow Rate 3 Narrative Exam Narrative: GEN: no acute distress, obese HEENT: moist mucous membranes, PERRL NECK: trachea midline, no JVD CV: regular rate and rhythm, no murmurs PULM: clear bilaterally ABD: soft, nontender, nondistended, no organomegaly EXT: R postop hip dressing NEURO: awake, alert, oriented, no focal deficits Objective Labs 10/01/23 05:55 09/30/23 18:00 Labs: Laboratory Results - last 24 hr 09/30/23 09/30/23 09/30/23 11:48 17:18 17:19 WBC 15.1 H RBC 4.15 L Hgb 12.6 L Hct 37.4 L MCV 90.1 MCH 30.4 MCHC 33.7 RDW 13.1 Plt Count 203 Neut % (Auto) 88.2 H Lymph % (Auto) 8.5 L [place] % (Auto) 2.2 L Eos % (Auto) 0.7 L Baso % (Auto) 0.4 Neut # (Auto) 40636 H Lymph # (Auto) 1300 [place] # (Auto) 300 Eos # (Auto) 100 Baso # (Auto) 100 PT 13.0 H INR 1.1 Sodium Potassium Chloride Carbon Dioxide BUN Creatinine Estimated GFR BUN/Creatinine Ratio Glucose Calcium Magnesium Total Bilirubin AST ALT Alkaline Phosphatase Total Creatine Kinase Troponin I Total Protein Albumin Globulin Albumin/Globulin Ratio Nasal Screen MRSA (PCR) Blood Type O Positive Antibody Screen Negative Crossmatch See Detail 09/30/23 09/30/23 09/30/23 18:00 20:54 20:56 WBC RBC Hgb Hct MCV MCH MCHC RDW Plt Count Neut % (Auto) Lymph % (Auto) [place] % (Auto) Eos % (Auto) Baso % (Auto) Neut # (Auto) Lymph # (Auto) [place] # (Auto) Eos # (Auto) Baso # (Auto) PT INR Sodium 135 L Potassium 4.4 Chloride 106 Carbon Dioxide 27 BUN 15 Creatinine 0.83 Estimated GFR > 60 BUN/Creatinine Ratio 18.1 Glucose 138 H Calcium 8.4 Magnesium 1.7 Total Bilirubin 0.7 AST 32 ALT 16 Alkaline Phosphatase 74 Total Creatine Kinase 233 H 452 H D Troponin I < 0.012 < 0.012 Total Protein 5.7 L Albumin 3.0 L Globulin 2.7 Albumin/Globulin Ratio 1.1 Nasal Screen MRSA (PCR) Not detected Blood Type Antibody Screen Crossmatch 10/01/23 10/01/23 01:55 05:55 WBC RBC Hgb 12.0 L 11.2 L Hct 34.6 L 32.8 L MCV MCH MCHC RDW Plt Count Neut % (Auto) Lymph % (Auto) [place] % (Auto) Eos % (Auto) Baso % (Auto) Neut # (Auto) Lymph # (Auto) [place] # (Auto) Eos # (Auto) Baso # (Auto) PT INR Sodium Potassium Chloride Carbon Dioxide BUN Creatinine Estimated GFR BUN/Creatinine Ratio Glucose Calcium Magnesium Total Bilirubin AST ALT Alkaline Phosphatase Total Creatine Kinase Troponin I < 0.012 < 0.012 Total Protein Albumin Globulin Albumin/Globulin Ratio Nasal Screen MRSA (PCR) Blood Type Antibody Screen Crossmatch [facility] Medical History Bradycardia Hx of diastolic dysfunction NSVT (nonsustained ventricular tachycardia) CAD (coronary artery disease) PAF (paroxysmal atrial fibrillation) Skin cancer Chronotropic incompetence History of cardioversion HLD (hyperlipidemia) HTN (hypertension) Post-nasal drip Afib Osteoarthritis Pacemaker (~2019) LAMBERTO on CPAP Surgical History H/O arthroscopy of right knee H/O arthroscopy of left knee Hx of tonsillectomy History of biopsy Social History household members: spouse Tobacco & Substance Use Smoking Status: Never smoker alcohol intake: former Assessment & Plan Assessment & Plan narrative: # intraoperative ST elevation -2min of ST elevation seen on monitor per anesthesia -EKG have been normal, trops neg x4 -echo pending -should have outpatient stress test arranged with his field checker -keep mag >2 and K >4 -tele # s/p R total hip replacement on 09/30 -management per ortho # h/o NSVT and A-fib s/p pacemaker -continue warfarin per pharmacy with INR goal 2-3 -continue metoprolol # CAD -continue aspirin -stress test as above # HTN -continue lisinopril # HLD -continue statin Medicine will continue to follow. Thank you for allowing us to participate in the care of this patient. Should you have any questions, do not hesitate to speak with us directly or call us.
--- NOTE | 2023-10-01 08:04 | DI.ECHO.S_ITS ---
[facility] +---------+ : : [address] : : : : [place] : : : : [id number] : : : : Phone: [phone] Echocardiogram Report + + :Name: IZA ISBELL Study Date: 10/01/2023 Height: 68 in : :[facility] ReadingLocation: Weight: 220 lb : : Gender: Male BSA: 2.1 m2 : :: 1945 Age: 78 yrs BP: 107/58 mmHg: :Reason For Study: ST ELEVATION : :Ordering Physician: NELSY, : :CHUY Hong Performed By: Celsa Ortiz : :Referring: CHUY WHITTINGTON : + + Interpretation Summary The left ventricle is normal in size and wall thickness. Left ventricular systolic function appears normal without focal wall motion abnormalities. The ejection fraction is estimated to be 60-65%. The right ventricle is normal in size and function. The right ventricular systolic pressure is estimated to be at least 28 mmHg based on an estimated right atrial pressure of 3 mm Hg. The left atrial size is normal. There is no significant valvular heart disease. The aortic root is normal size. Procedure: A two-dimensional transthoracic echocardiogram with color flow and Doppler was performed. The study quality was technically adequate. There is no prior echocardiogram noted for this patient. The patient was in 60-63 during the exam. Left Ventricle: The left ventricle is normal in size and wall thickness. Left ventricular systolic function appears normal without focal wall motion abnormalities. The ejection fraction is estimated to be 60-65%. Diastolic parameters suggest probable normal left ventricular diastolic function and normal filling pressures. Right Ventricle: The right ventricle is normal in size and function. Atria: The left atrial size is normal. Right atrial size is normal. There is no Doppler evidence for an interatrial shunt. Mitral Valve: The mitral valve is normal in structure and function. There is trace mitral regurgitation. Aortic Valve: The aortic valve is trileaflet. The aortic valve opens well. There is no aortic valve stenosis. There is trace aortic regurgitation. Tricuspid Valve: The tricuspid valve is normal in structure and function. There is trace tricuspid regurgitation. The right ventricular systolic pressure is estimated to be at least 28 mmHg based on an estimated right atrial pressure of 3 mm Hg. Pulmonic Valve: The pulmonic valve leaflets are thin and pliable; valve motion is normal. There is a trace or physiologic amount of pulmonic regurgitation. There is no significant valvular heart disease. Great Vessels: The aortic root is normal size. The dimensions of the ascending aorta are normal. The IVC is of normal diameter and collapses greater than 50% with a sniff. This suggests a low right atrial pressure of 3 mm Hg. Pericardium/ Pleura There is no pericardial effusion. There is no pleural effusion. MMode/2D Measurements & Calculations LVIDd: 3.6 cm LVOT diam: 2.2 cm LVIDs: 2.4 cm Ao root diam: 3.3 cm FS: 35.1 % asc Aorta Diam: 3.2 cm IVSd: 1.0 cm LVPWd: 0.92 cm LV roman. diameter/BSA (cm/m^2): 1.7 LV sys. diameter/BSA (cm/m^2): 1.1 LA A2 area: 23.6 cm2 RA long axis: 4.4 cm LA A4 area: 19.7 cm2 RA area: 15.3 cm2 LA length (vol): 5.7 cm RA vol: 44.9 ml LA vol: 69.6 ml RA : 21.1 ml/m2 LA vol index: 32.7 ml/m2 IVC diam: 1.3 cm RVD1 (basal): 3.8 cm TAPSE: 2.5 cm Doppler Measurements & Calculations MV E max chris: 97.9 cm/sec TR max chris: 252.2 cm/sec MV A max chris: 68.3 cm/sec TR max P.4 mmHg MV E/A: 1.4 PA V2 max: 108.4 cm/sec MV dec time: 0.25 sec PA V2 mean: 77.8 cm/sec PA mean P.6 mmHg PA pr(Accel): 31.0 mmHg Reading Physician:03:12 PM
[2023-10-01] MEDS: FUROSEMIDE 20 MG TABLET 10 MG PO (08:20)
[2023-10-01] MEDS: LORATADINE 10 MG TABLET PO (08:20)
[2023-10-01] MEDS: ONDANSETRON 4 MG ODT PO (08:20)
[2023-10-01] MEDS: lisinopriL 5 MG TABLET PO (08:20)
[2023-10-01] MEDS: POTASSIUM CHLORIDE 10 MEQ TAB PO (08:22)
[2023-10-01] MEDS: DOCUSATE 100 MG CAPSULE PO ×2 (08:22→21:35)
[2023-10-01] MEDS: ASPIRIN 81 MG CHEW TAB PO (08:22)
[2023-10-01] MEDS: MONTELUKAST 10 MG TABLET PO (08:22)
[2023-10-01] MEDS: PREGABALIN 50 MG CAPSULE PO ×2 (08:22→21:35)
[2023-10-01] MEDS: MAGNESIUM CHLORIDE 64 MG TABLET 128 MG PO (08:24)
--- NOTE | 2023-10-01 09:00 | PT.IIE ---
Current Diagnoses Unilateral primary osteoarthritis, right hip (09/30/23) Presence of unspecified artificial hip joint (09/30/23) Surgery Performed Operation Date: 09/30/23 12:45 Actual Procedures p Total Hip Arthroplasty/Anterior Approach(Right) - Neftali Tafoya MD Surgical History (Last Reviewed 10/01/23 @ 07:52 by Jin Tom DO) H/O arthroscopy of left knee H/O arthroscopy of right knee History of biopsy Hx of tonsillectomy Medical History (Last Reviewed 10/01/23 @ 07:52 by Jin Tom DO) Afib Bradycardia CAD (coronary artery disease) Chronotropic incompetence History of cardioversion HLD (hyperlipidemia) HTN (hypertension) Hx of diastolic dysfunction NSVT (nonsustained ventricular tachycardia) LAMBERTO on CPAP Osteoarthritis Pacemaker (~2019) PAF (paroxysmal atrial fibrillation) Post-nasal drip Skin cancer Physical Therapy Inpatient Evaluation/Re-Eval M1 PT/OT-IP Prior Functional Status Start: 10/01/23 12:27 Freq: NEEDED Status: Active Protocol: Document 10/01/23 09:00 AB (Rec: 10/01/23 12:44 AB [email or web address]) Medical Review Prior Functional Status Communication able to make kelley known; has slight confusion Mobility and Gait pt stated that he was indpenednet with all mobilities and ambulation using a SPC for the last 2 months Social History Household Members spouse Living Arrangements House Number of Floors (Floors) Two Floors Number of Stairs To Enter/Railing? pt has a chair lift to get to 2nd level of the house has 1 step + 1 step without rails to enter the house Home Environment Standard Height Toilet,Walk in Shower Home Equipment Front Wheel Walker,Four Wheel Walker,Straight Cane,Raised Toilet Seat w/Armrests,Shower Seat without Backrest,Hand Held Shower,Cider Maker,Grab Bars In Shower M2 PT-IP Current Condition Start: 10/01/23 12:27 Freq: NEEDED Status: Active Protocol: Document 10/01/23 09:00 AB (Rec: 10/01/23 12:44 AB [id number]) Physical Therapy Current Condition Current Condition Evaluation Date 10/01/23 Treatment Diagnosis s/p R HÉCTOR anterior approach; difficulty in walking Onset Date 09/30/23 M3 PT-IP Subjective Start: 12/22/23 12:27 Freq: NEEDED Status: Active Protocol: Document 10/01/23 09:00 AB (Rec: 10/01/23 12:44 AB [id number]) Subjective Physical Therapy Visit Type Type Initial Evaluation Visit Start Time 09:00 Visit Stop Time 10:10 Total Visit Minutes 70 Number of COLLECTIONS CLERK Visits 0 Physical Therapy Visit Comments Patient Comments agreeable to do PT Therapy Pain Assessment Pain When Pain Assessed After Treatment Pain Present Pain Present Pain Reported Location Right Hip Scale Used pain scale not stated Pain Management Techniques Apply Cold,Distraction, Modification of Treatment,Re- positioning,Timing of Activity with Medications M4 PT-IP Mobility and Gait Start: 10/01/23 12:27 Freq: NEEDED Status: Active Protocol: Document 10/01/23 09:00 AB (Rec: 10/01/23 12:44 [email or web address]) PT-Bed Mobility Assessment Supine to Sit Supine to Sit Maximum Assistance,Head of Bed Elevated,Bedrails PT-Transfer Assessment Sit to and From Stand Sit to and from Stand Moderate Assistance,1 Person Assistance,Use of Upper Extremities Equipment Transfer Assistive Device Gait Belt,Front Wheeled Walker Orthotic/Prosthetic Devices or Brace: No Transfers Transfer Destination Chair Transfer Technique ambulated Transfer Ability Level of Assist Minimal Assistance,1 Person Assistance,Use of Upper Extremities Comments Mobility Comments pt supine in bed and agreeable to do PT. PLOF and home set up obtained. Post-op folder provided and reviewed contents . educated pt on anterior hip precautions for his RLE. pt with some confusion and memory issues requiring repeated cues with all tasks. BP in supine: 112/78 pt completed supine to sit max A and max cues. able to sit on EOB CGA. BP: 133/78. completed sit to stand mod A and cues. ambulated in room using FWW min A ~ 25 ft. presents with very slow paced guarded gait with decrease feet clearance and cues for anterior precautions for safety as pt has decrease carryover of precautions. pt agreed to sit on the chair. BP: 144/83. positioned pt on the chair. call light and table placed within reach. informed pt regarding caregiver training and agreed. set up for spouse to come in at 1pm this afternoon for training. Gait Assessment Gait Gait Assistance Required: Minimum Assistance Distance (Feet) 25 Able to Maintain Weight Bearing Status Yes During Gait Assistive Devices Assistive Device Gait Belt,Front Wheeled Walker Orthotic/Prosthetic Devices or Brace: No Gait Deviations General Gait Pattern Antalgic,Decreased Stride Length,Decreased Feet Clearance,Step-to Gait Factors Limiting Gait Function Factors Limiting Gait Function Decreased Activity Tolerance, Decreased Sensation,Decreased Strength,Limited Range of Motion,Pain,Poor Balance,Poor Safety Awareness,Respiratory Distress PT-Balance Assessment Sitting Balance and Reactions Static Sitting Balance Ability Normal Dynamic Sitting Balance Ability Good Standing Balance and Reactions Static Standing Balance Ability Fair Dynamic Standing Balance Ability Fair Device Used FWW M5 PT-IP Objective Assessments Start: 10/01/23 12:27 Freq: NEEDED Status: Active Protocol: Document 10/01/23 09:00 AB (Rec: 10/01/23 12:44 AB [id number]) Orientation Orientation/Cognition Level of Alertness Alert Orientation Name,Situation Language Function Ability Hard of Hearing Safety Awareness Decreased Safety Awareness Memory Description Short Term Impaired Gross Range of Motion Lower Extremity ROM Assessment Within Functional Limits Strength Lower Extremity Strength Assessment Right Impaired Hip 3-/5 Knee 4-/5 Sensation Assessment Sensation Sensation Description Numbness Comments Sensation Comments pt stated that he still has some numbness on R hip area Muscle Tone Muscle Tone WNL Yes M6 PT-IP Treatment Start: 10/01/23 12:27 Freq: NEEDED Status: Active Protocol: Document 10/01/23 09:00 AB (Rec: 10/01/23 12:44 AB [email or web address]) Physical Therapy Treatment Exercises Exercises Heel Slides Education Education Provided Precautions,Weight Bearing Status,Post-Op Packet,Safety Other Treatments Other Treatment Performed completed heels slide prior to mobility/PROM/MMT M7 PT-IP Assessment and Plan Start: 10/01/23 12:27 Freq: NEEDED Status: Active Protocol: Document 10/01/23 09:00 AB (Rec: 10/01/23 12:44 AB [email or web address]) PT Summary Assessment and Plan Potential Rehabilitation Potential Fair Status of Condition at Evaluation Evolving Summary Impairments Pain,ROM,Strength,Balance, Coordination,Sensation,Tone, Cognition,Bed Mobility, Transfers,Gait,Activity Tolerance Assessment Summary pt is a 78 y/o M s/p R HÉCTOR anterior approach. pt has R hip anterior precautions and is WBAT. pt currently requiring max A for supine to sit, mod A for sit to stand and min A for ambulation using FWW but only ambulated ~ 25 ft. pt requiring max cues with all tasks and requires consistent reminders for his hip precautions. pt lives with spouse and spouse to assist pt upon d/c. Caregiver training set up this afternoon at 1 pm. will continues to assess progress. d/c plan: SNF vs home with and HHPT. Goals Bed Mobility Goal Standby Assistance Transfer Goal Standby Assistance,Front Wheeled Walker Gait Goal Standby Assistance,Front Wheel Walker Gait Distance 200 Other Goals improve bed mobility, transfers and ambulation using LRAD ~ 300 ft mod I up/down 2 platform steps using FWW SBA Days to Meet Goals 5 Frequency of Treatment Frequency Of Treatment Twice a Day Treatment Plan Physical Therapy Treatment Plan Bed Mobility Training,Transfer Training,Gait Training, Therapeutic Exercise,Balance Retraining,Post Op Education, Discharge Planning,Hot or Cold Pack,Neuromuscular Re-ed, Coordination Retraining,Manual Therapy Precautions Anterior Hip Precautions No Hip Extension,No Hip External Rotation Weight Bearing Status Weight Bearing Status Weight Bear as Tolerated Allowed Weight Bearing Amount (enter % RLE WBAT or #) (%) Recommendations To Nursing Amount of Assist Needed 1 Person Assist Discharge Recommendations PT Discharge Recommendations Home with 03/05 Assist Available,Home Health,SNF Rehab,Home vs SNF Transportation Needs at Discharge Private Vehicle,Wheelchair/ Cabulance
[2023-10-01] MEDS: OXYCODONE IR 5 MG TABLET PO (11:17)
[2023-10-01] MEDS: ENOXAPARIN 40 MG/0.4 ML SYRINGE SUBCUT (11:18)
--- NOTE | 2023-10-01 11:18 | OT.IP.EVAL ---
Current Diagnoses Unilateral primary osteoarthritis, right hip (09/30/23) Presence of unspecified artificial hip joint (09/30/23) Surgery Performed Operation Date: 09/30/23 12:45 Actual Procedures p Total Hip Arthroplasty/Anterior Approach(Right) - Neftali Tafoya MD Past Medical History (Last Reviewed 10/01/23 @ 07:52 by Jin Tom DO) Afib Bradycardia CAD (coronary artery disease) Chronotropic incompetence History of cardioversion HLD (hyperlipidemia) HTN (hypertension) Hx of diastolic dysfunction NSVT (nonsustained ventricular tachycardia) LAMBERTO on CPAP Osteoarthritis Pacemaker (~2019) PAF (paroxysmal atrial fibrillation) Post-nasal drip Skin cancer Surgical History (Last Reviewed 10/01/23 @ 07:52 by Jin Tom DO) H/O arthroscopy of left knee H/O arthroscopy of right knee History of biopsy Hx of tonsillectomy Occupational Therapy Inpatient Evaluation/Re-Eval M1 PT/OT-IP Prior Functional Status Start: 10/01/23 11:17 Freq: NEEDED Status: Active Protocol: Document 10/01/23 11:19 [facility] (Rec: 10/01/23 11:39 [facility] [id number]) Medical Review Prior Functional Status Medical History Reviewed Yes Communication Independent Mobility and Gait Pt states had pain but did not use a device while ambulating . Activities of Daily Living and IADL's Pt states unable to do his socks anymore due to his pain. Prior Functional Level (Other details) Per pt his is not able to physically assist him at home due to her bad back and knee issues. Social History Household Members spouse Living Arrangements House Number of Floors (Floors) Two Floors Number of Stairs To Enter/Railing? 1 concrete step up to the porch and another step to get to the front door. Pt has a stair lift that his uses to get to the 2nd floor. Home Environment Standard Height Toilet,Walk in Shower Home Equipment Four Wheel Walker,Straight Cane,Raised Toilet Seat w/ Armrests,Shower Seat without Backrest,Hand Held Shower, Ekg Monitor Tech,Grab Bars In Shower Additional Social History Comment Pt states has a FWW and long handled shoe horn that he is unable to find in his house. M2 OT-IP Current Condition Start: 10/01/23 11:17 Freq: Status: Active Protocol: Document 10/01/23 11:19 [facility] (Rec: 10/01/23 11:39 [facility] [id number]) Occupational Therapy Current Condition Current Condition Evaluation Date 10/01/23 Treatment Diagnosis S/P R HÉCTOR anterior approach Diagnosis Onset Date 09/30/23 Post Operative Precautions Anterior Hip Precautions No Hip Extension,No Hip External Rotation M3 OT- IP Subjective and Pain Start: 10/01/23 11:17 Freq: Status: Active Protocol: Document 10/01/23 11:19 [facility] (Rec: 10/01/23 11:39 [facility] [id number]) OT- Subjective Occupational Therapy Visit Type Type Initial Evaluation Visit Start Time 10:50 Visit Stop Time 11:18 Total Visit Minutes 28 Occupational Therapy Visit Comments Patient Comments Pt agreed to get up. Baker Bread for ECHO came and therefore helping pt back to bed. Patient/Caregiver Goals To go to rehab. OT Pain Assessment Pain When Pain Assessed At Rest Pain Present Pain Present Pain Reported Location Right Hip Intensity 3 Scale Used Numeric (0 - 10) M4 OT- IP ADL's Start: 10/01/23 11:17 Freq: Status: Active Protocol: Document 10/01/23 11:19 [facility] (Rec: 10/01/23 11:39 [facility] [id number]) OT [id number] General Evaluation Self-Feeding Ability Independent OT ADL-Grooming Comments OT Grooming Comments Not performed, no issues anticipated. OT ADL-Oral Care Comments Oral Care Comments Not performed, no issues anticipated. OT ADL-Dressing General Eval Lower Body Dressing Ability Maximum Assistance Areas Needing Assistance Socks Comments OT Dressing Comments Pt not able to lift his leg up at this time and will need assist for get clothing over his feet. Pt will benefit from use of receptionist nurse and sock aid for LB dressing needs at this time. Pt will also benefit from practice so able to do on his own as his not able to assist. OT ADL-Toileting Comments OT Toileting Comments Pt not having to go. Educated pt to be mindful of his leg positioning while doing hygiene needs. In addition that standing may be easier in addition to use of wipes. OT ADL-Bathing Comments OT Bathing Comments Not performed. M5 OT- IP IADL's Start: 10/01/23 11:17 Freq: Status: Active Protocol: Document 10/01/23 11:19 [facility] (Rec: 10/01/23 11:39 [facility] [id number]) OT-Instrumental Activities of Daily Living Deficits IADL Deficits Identified Deficits Home Safety Awareness Awareness of Need for Assistance at Home Good Awareness Ability to Problem Solve Emergency Able to Problem Solve Situations Medication Management Medication Management No Deficits Identified Money Management Money Management No Deficits Identified Meal Preparation Meal Preparation Caregiver Provides Assist Automobile Tester Automobile Tester Caregiver Provides Assist M6 OT- IP Functional Cognition Start: 10/01/23 11:17 Freq: Status: Active Protocol: Document 10/01/23 11:19 [facility] (Rec: 10/01/23 11:39 [facility] [id number]) Cognitive Factors Limiting Selfcare Function Cognitive Ability Level of Alertness Alert Patient Orientation Name,Age,Birthday,Month,Date, Year,Day of Week,Place, Situation Attention Span Ability Capable of Focused Attention, Capable of Sustained Attention Ability to Follow Commands Able to Follow Multi-Step Commands Cognitive Comments Cognitive Assessment Comments Intact, pt able to recall and incorporate his hip precautions for ADL and mobility needs. OT- Vision and Hearing OT- Hearing Assessment OT- Hearing Assessment WFL OT- Vision Assessment Visual Acuity Glasses All The Time Visual Attentiveness WFL Occular Pursuits WFL M7 OT- IP Mobility and Balance Start: 10/01/23 11:17 Freq: Status: Active Protocol: Document 10/01/23 11:19 [facility] (Rec: 10/01/23 11:39 [facility] [id number]) OT- Bed Mobility Assessment Sit to Supine Sit to Supine Assist Moderate Assistance OT-Transfer Assessment Sit to and From Stand Sit to and from Stand Minimal Assistance Transfers Transfer Ability Minimal Assistance Technique Transfer Destination Bed,Chair Transfer Technique Stand Step Pivot Devices Transfer Assistive Devices Gait Belt,Front Wheeled Walker Comments Mobility Comments ZACHARY to help stand and will need more assist if coming up from a lower surface at this time. ZACHARY with FWW to transfer back to bed as pt a little unsteady on his feet. Pt needing MODA to help get back to bed as still unable to lift his RLE on his own. Educated of use of cane/gait belt to assist if needed. OT- Balance Assessment Sitting Balance and Reactions Static Sitting Balance Ability Good Dynamic Sitting Balance Ability Good Standing Balance and Reactions Static Standing Balance Ability Fair Dynamic Standing Balance Ability Fair M8 OT- IP Objective Assessments Start: 10/01/23 11:17 Freq: Status: Active Protocol: Document 10/01/23 11:19 [facility] (Rec: 10/01/23 11:39 [facility] [id number]) OT Gross Range of Motion Upper Extremity Range of Motion Assessment Within Functional Limits OT Strength Upper Extremity Strength Assessment Within Functional Limits M9 OT- IP Assessment and Plan Start: 10/01/23 11:17 Freq: Status: Active Protocol: Document 10/01/23 11:19 [facility] (Rec: 10/01/23 11:39 [facility] [id number]) OT Summary Assessment and Plan Potential Rehabilitation Potential Excellent Analytic Complexity at Evaluation Low Summary OT Impairments Pain,Balance,Functional Mobility,Dressing,Toileting, Bathing,Toilet Transfers, Shower Transfers Progress Towards Goals Progressing Toward Goals Assessment Summary Pt low complexity and main barriers are pain, needing assist to help get his RLE into and out of bed and needing assist for ADL's at this time. Pt using the fww and needing assist for steadying. Pt is very motivated and cooperative and will greatly benefit from short rehab stay so to be able to take care of himself for ADl and mobility needs as his is not able to physically assist him. Goals Dressing Goal Independent,Long Handled Shoe Horn,Ekg Monitor Tech,Sock Aid Toileting Goal Independent Bathing Goal Independent,Hand Held Shower Sprayer Toilet Transfer Goal Independent Shower Transfer Goal Independent Days to Meet Goals 10 Frequency of Treatment Frequency Of Treatment Once a Day Treatment Plan OT Treatment Plan ADL Training,Functional Mobility,Patient/Family Education,Discharge Planning Other Treatment Recommendations and Next Practice use of LB dressing Treatment Focus equipment. Discharge Recommendations OT Discharge Recommendations SNF Rehab Transportation Needs at Discharge Private Vehicle,Wheelchair/ Cabulance
--- NOTE | 2023-10-01 13:10 | PT.IPTN ---
Current Diagnoses Unilateral primary osteoarthritis, right hip (09/30/23) Presence of unspecified artificial hip joint (09/30/23) Surgery Performed Operation Date: 09/30/23 12:45 Actual Procedures p Total Hip Arthroplasty/Anterior Approach(Right) - Neftali Tafoya MD Physical Therapy Treatment Note M2 PT-IP Current Condition Start: 10/01/23 12:27 Freq: NEEDED Status: Active Protocol: Document 10/01/23 09:00 AB (Rec: 10/01/23 12:44 AB [email or web address]) Physical Therapy Current Condition Current Condition Evaluation Date 10/01/23 Treatment Diagnosis s/p R HÉCTOR anterior approach; difficulty in walking Onset Date 09/30/23 M3 PT-IP Subjective Start: 10/01/23 12:27 Freq: NEEDED Status: Active Protocol: Document 10/01/23 13:10 AB (Rec: 10/01/23 16:27 AB [id number]) Subjective Physical Therapy Visit Type Type Treatment Note Visit Start Time 13:10 Visit Stop Time 14:05 Total Visit Minutes 55 Number of CIRCULATION ASSISTANT Visits 0 Physical Therapy Visit Comments Patient Comments agreeable to do PT Therapy Pain Assessment Pain Present Pain Present Pain Reported Location Right Hip Scale Used pain scale not stated Pain Management Techniques Apply Cold,Distraction, Modification of Treatment,Re- positioning,Timing of Activity with Medications M4 PT-IP Mobility and Gait Start: 10/01/23 12:27 Freq: NEEDED Status: Active Protocol: Document 10/01/23 13:10 AB (Rec: 10/01/23 16:27 AB [id number]) PT-Bed Mobility Assessment Supine to Sit Supine to Sit Contact Guard Assistance, Minimal Assistance,Moderate Assistance,Bedrails Sit to Supine Sit to Supine Contact Guard Assistance, Minimal Assistance,Bedrails PT-Transfer Assessment Sit to and From Stand Sit to and from Stand Contact Guard Assistance,1 Person Assistance,Use of Upper Extremities Equipment Transfer Assistive Device Gait Belt,Front Wheeled Walker Orthotic/Prosthetic Devices or Brace: No Comments Mobility Comments pt supine in bed. spouse in room for caregiver training. Clarified d/c plan with pt due to OT stating that pt informed OT that he plans to go to rehab. Pt confirmed that he wants to go to SNF rehab due to spouse will be limited to the assistance she can provide due to her back problems. Pt stated that he is willing to pay out of pocket if needed. pt then declined caregiver training for spouse. educated spouse regarding pt's R hip anterior precautions and what to be aware of but no hand-on caregiver training conducted. pt completed supine to sit mod A and max cues. pt able to sit on EOB SBA. completed sit to stand CGA and ambulated in room using FWW cGA and cues ~ 40 ft. pt presents wtih very slow paced guarded gait and needs cues for precautions. pt requested to go back to bed . completed sit to supine min A and max cues for techniques. educated pt on supine<>sit techniques. pt completed another set of supine<>sit CGA . positioned pt on the bed. call light and table placed within reach. pt is determined to go to SNF. manager new product informed. Gait Assessment Gait Gait Assistance Required: Contact Guard Assist Distance (Feet) 40 Able to Maintain Weight Bearing Status Yes During Gait Assistive Devices Assistive Device Gait Belt,Front Wheeled Walker Orthotic/Prosthetic Devices or Brace: No Gait Deviations General Gait Pattern Antalgic,Decreased Feet Clearance Factors Limiting Gait Function Factors Limiting Gait Function Decreased Activity Tolerance, Decreased Strength,Difficulty Following Directions,Limited Range of Motion,Pain,Poor Balance,Poor Safety Awareness M5 PT-IP Objective Assessments Start: 10/01/23 12:27 Freq: NEEDED Status: Active Protocol: Document 10/01/23 09:00 AB (Rec: 10/01/23 12:44 AB [id number]) Orientation Orientation/Cognition Level of Alertness Alert Orientation Name,Situation Language Function Ability Hard of Hearing Safety Awareness Decreased Safety Awareness Memory Description Short Term Impaired Gross Range of Motion Lower Extremity ROM Assessment Within Functional Limits Strength Lower Extremity Strength Assessment Right Impaired Hip 3-/5 Knee 4-/5 Sensation Assessment Sensation Sensation Description Numbness Comments Sensation Comments pt stated that he still has some numbness on R hip area Muscle Tone Muscle Tone WNL Yes M6 PT-IP Treatment Start: 10/01/23 12:27 Freq: NEEDED Status: Active Protocol: Document 10/01/23 13:10 AB (Rec: 10/01/23 16:27 AB [id number]) Physical Therapy Treatment Education Education Provided Precautions,Weight Bearing Status,Safety M7 PT-IP Assessment and Plan Start: 10/01/23 12:27 Freq: NEEDED Status: Active Protocol: Document 10/01/23 13:10 AB (Rec: 10/01/23 16:27 AB [id number]) PT Summary Assessment and Plan Potential Rehabilitation Potential Good Summary Impairments Pain,ROM,Strength,Balance, Coordination,Sensation,Tone, Cognition,Bed Mobility, Transfers,Gait,Activity Tolerance Progress Towards Goals Progressing Toward Goals Assessment Summary pt improving with mobility and requiring CGA with bed mobility after training and cues, CGA with ambulation using FWW but with cues for hip precautions and safety. pt stated that his spouse will not be able to assist him due to spouse's back problems. pt will benefit from SNF rehab to improve overall strength and improve mobility independence prior to going home. Goals Bed Mobility Goal Standby Assistance Transfer Goal Standby Assistance,Front Wheeled Walker Gait Goal Standby Assistance,Front Wheel Walker Gait Distance 200 Other Goals improve bed mobility, transfers and ambulation using LRAD ~ 300 ft mod I up/down 2 platform steps using FWW SBA Days to Meet Goals 5 Frequency of Treatment Frequency Of Treatment Twice a Day Treatment Plan Physical Therapy Treatment Plan Bed Mobility Training,Transfer Training,Gait Training, Therapeutic Exercise,Balance Retraining,Post Op Education, Discharge Planning,Hot or Cold Pack,Neuromuscular Re-ed, Coordination Retraining,Manual Therapy Precautions Anterior Hip Precautions No Hip Extension,No Hip External Rotation Weight Bearing Status Weight Bearing Status Weight Bear as Tolerated Allowed Weight Bearing Amount (enter % RLE WBAT or #) (%) Recommendations To Nursing Amount of Assist Needed 1 Person Assist Discharge Recommendations PT Discharge Recommendations Home with 03/05 Assist Available,Home Health,SNF Rehab,Home vs SNF Transportation Needs at Discharge Private Vehicle,Wheelchair/ Cabulance
--- NOTE | 2023-10-01 13:22 | CM.DANOTE ---
Addendum entered by NEW Page 10/01/23 13:33: ADD: Patient reports he recently installed a stair lift in their home. Original Note: Initial DCP Assessment Note Pt is a 78 yo male, resident of [place] near [place], now POD#1 from Rt hip surgery by Dr Tafoya PCP: Luis Enrique Paul Payer: [facility] Reviewed chart, pt discussed in multidisciplinary rounds this morning. Hospitalist consulted for 2min of intra-op ST elevation on monitor. Met w/patient to introduce self and role. Patient lives with spouse in [place], active and indp w/cane at baseline. Patient has planned for return home w/sp to assist. No hx HH or SNF. Patient shares that he does have concern about his caring for him during recovery as she drinks approx. a bottle of wine or a 6 pack every night. Patient further states spouse had agreed to stop drinking for awhile in order to assist patient, spouse does not have hx of withdrawals per patient. Patient requests SNF search in [place] and discussion with [facility] re SNF auth as a back up plan. Discussed w/OT and RN. PT has scheduled caregiver training with spouse this afternoon. According to review of chart notes, patient may be too high functioning for a SNF auth through [facility]. Faxed updated therapy notes and medical prog notes to [facility], attempted contact w/[facility] DESI Bonner# [phone], had to leave a general message on an automated VM. CM team will plan to follow closely. Will wait on SNF search until auth discussed with [facility] CM- Patient may not qualify. Plan: Discharge either home w/sp (HH referral would be helpful) vs SNF, if [facility] would consider authorizing. 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 Yes Advance Directives on File No History Provided By Patient,Medical Record Prior Living Arrangements House Household Members spouse Type of transporation used prior to Drives own vehicle admit Independent with ADL's Yes Is patient alert and oriented? Yes Barriers to Discharge Yes Comment Spouse drinks heavily every night per patient. Patient concerned he will not have the assistance he needs if spouse does not abstain from drinking as she agreed to do. Transportation Arrangement TBD Additional Comment Will need SNF referrals in [place] depending on if [facility] will consider authorizing.
--- NOTE | 2023-10-01 16:18 | P.PN_ITS ---
Subjective Subjective Date Patient Seen: 10/01/23 Time Patient Seen: 16:10 Interval history: Followed up with pt POD #1 after R TKA with about [address] elevation during closure about 45 minutes before end of case. Pt has a [employer] pacemaker and is anticoagulated for hx of Afib, hx bradycardia, NSVT. From talking to pt, he says he has had two prior stress tests, one an exercise stress test and one nuclear stress test. He has had a couple of TEEs, at least one cardioversion, and an ablation done around 2016 with his pacemaker placed about a year after that. Pt is doing well, jovial and relaxed this afternoon. He denies any CP or anginal sx in past 24 hours or at all in the past five years. Chart and rhythm strips reviewed. Pt was A-paced on preop EKG. Postop EKG showed V-paced. Intraop rhythm strip showed what appears to be V-paced rhythm but with ST elevation, and pt's BP dropped below 80 systolic with HR >100. No medications were given within half an hour of rhythm change. Postop EKGs and rhythm strips have shown no ischemia. Troponins negative x 4. Echo done today was a normal study and showed EF 60-65% and no valvular abnormalities or wall motion abnormalities. Decision was made by hospitalist during my visit with him and the pt to hold off on doing a nuclear stress test, given all the negative findings, and have pt follow up after discharge with his under water assistant, Dr. Frederick Nails. Assessment/Plan: Intraoperative episode of nonsustained tachycardia with hypotension and ST elevation, reverted to V-pacing and later last night back to A-pacing as he was on preop EKG. Follow-up as per hospitalist and Dr. Tafoya. Exam Vital Signs (past 8 hours): - 10/01/23 09:00 10/01/23 09:00 10/01/23 09:08 Temperature Pulse Rate 60 60 Respiratory Rate 22 25 H Blood Pressure 114/55 L Pulse Oximetry 99 99 10/01/23 09:08 10/01/23 09:42 10/01/23 09:42 Temperature Pulse Rate 62 Respiratory Rate 22 Blood Pressure 111/64 139/65 Pulse Oximetry 10/01/23 10:00 10/01/23 10:25 10/01/23 10:30 Temperature 97.9 F Pulse Rate 62 63 61 Respiratory Rate 21 18 20 Blood Pressure 120/62 Pulse Oximetry 97 10/01/23 10:30 10/01/23 11:00 10/01/23 12:00 Temperature Pulse Rate 62 60 Respiratory Rate 23 16 Blood Pressure 120/62 Pulse Oximetry 10/01/23 13:00 10/01/23 14:00 10/01/23 15:00 Temperature Pulse Rate 60 60 60 Respiratory Rate 22 26 H 15 Blood Pressure Pulse Oximetry 10/01/23 15:38 10/01/23 15:38 Temperature 97.8 F Pulse Rate 62 Respiratory Rate 21 Blood Pressure 112/58 L Pulse Oximetry 98 Oxygen Delivery Method Nasal Cannula,CPAP Oxygen Flow Rate 3 Objective Labs 10/01/23 05:55 09/30/23 18:00 Labs: Laboratory Results - last 24 hr 09/30/23 09/30/23 09/30/23 17:18 17:19 18:00 WBC 15.1 H RBC 4.15 L Hgb 12.6 L Hct 37.4 L MCV 90.1 MCH 30.4 MCHC 33.7 RDW 13.1 Plt Count 203 Neut % (Auto) 88.2 H Lymph % (Auto) 8.5 L [place] % (Auto) 2.2 L Eos % (Auto) 0.7 L Baso % (Auto) 0.4 Neut # (Auto) 28009 H Lymph # (Auto) 1300 [place] # (Auto) 300 Eos # (Auto) 100 Baso # (Auto) 100 Sodium 135 L Potassium 4.4 Chloride 106 Carbon Dioxide 27 BUN 15 Creatinine 0.83 Estimated GFR > 60 BUN/Creatinine Ratio 18.1 Glucose 138 H Calcium 8.4 Magnesium 1.7 Total Bilirubin 0.7 AST 32 ALT 16 Alkaline Phosphatase 74 Total Creatine Kinase 233 H Troponin I < 0.012 Total Protein 5.7 L Albumin 3.0 L Globulin 2.7 Albumin/Globulin Ratio 1.1 Nasal Screen MRSA (PCR) Blood Type O Positive Antibody Screen Negative Crossmatch See Detail 09/30/23 09/30/23 10/01/23 20:54 20:56 01:55 WBC RBC Hgb 12.0 L Hct 34.6 L MCV MCH MCHC RDW Plt Count Neut % (Auto) Lymph % (Auto) [place] % (Auto) Eos % (Auto) Baso % (Auto) Neut # (Auto) Lymph # (Auto) [place] # (Auto) Eos # (Auto) Baso # (Auto) Sodium Potassium Chloride Carbon Dioxide BUN Creatinine Estimated GFR BUN/Creatinine Ratio Glucose Calcium Magnesium Total Bilirubin AST ALT Alkaline Phosphatase Total Creatine Kinase 452 H D Troponin I < 0.012 < 0.012 Total Protein Albumin Globulin Albumin/Globulin Ratio Nasal Screen MRSA (PCR) Not detected Blood Type Antibody Screen Crossmatch 10/01/23 05:55 WBC RBC Hgb 11.2 L Hct 32.8 L MCV MCH MCHC RDW Plt Count Neut % (Auto) Lymph % (Auto) [place] % (Auto) Eos % (Auto) Baso % (Auto) Neut # (Auto) Lymph # (Auto) [place] # (Auto) Eos # (Auto) Baso # (Auto) Sodium Potassium Chloride Carbon Dioxide BUN Creatinine Estimated GFR BUN/Creatinine Ratio Glucose Calcium Magnesium Total Bilirubin AST ALT Alkaline Phosphatase Total Creatine Kinase Troponin I < 0.012 Total Protein Albumin Globulin Albumin/Globulin Ratio Nasal Screen MRSA (PCR) Blood Type Antibody Screen Crossmatch [facility] Medical History Bradycardia Hx of diastolic dysfunction NSVT (nonsustained ventricular tachycardia) CAD (coronary artery disease) PAF (paroxysmal atrial fibrillation) Skin cancer Chronotropic incompetence History of cardioversion HLD (hyperlipidemia) HTN (hypertension) Post-nasal drip Afib Osteoarthritis Pacemaker (~2019) LAMBERTO on CPAP Surgical History H/O arthroscopy of right knee H/O arthroscopy of left knee Hx of tonsillectomy History of biopsy Social History household members: spouse Smoking Status: Never smoker alcohol intake: former Quality VTE Deep Vein Thrombosis/Pulmonary Embolism Present on Admission: No
[2023-10-01] MEDS: WARFARIN 5 MG TABLET PO (17:20)
[2023-10-01] MEDS: ATORVASTATIN 20 MG TABLET 40 MG PO (21:35)
[2023-10-01] MEDS: FLUTICASONE 120 SPRAY/16 GM SPRAY.SUSP NASAL (21:36)
[2023-10-02] VITALS (10 sets, daily range): BP systolic 103–146; BP diastolic 56–71; PULSE 60–109; RESP 16–19; TEMP 36–37.2; O2SAT 95–98
[2023-10-02] MEDS: ACETAMINOPHEN 325 MG TABLET 650 MG PO ×3 (02:46→20:31)
[2023-10-02 05:18] LABS: INR 1.2 (0.9-1.3); Prothrombin Time 13.6 SECONDS (9.4-12.5)
[2023-10-02 05:22] LABS: Add Manual Diff / Slide Review NO; Basophils Absolute Auto 0 /uL (0-100); Basophils Percent Auto 0.2 % (0-2); Eosinophils Absolute Auto 100 /uL (0-450); Eosinophils Percent Auto 0.5 % (2-4); Hemoglobin 9.8 g/dL (13.5-17.5); Lymphocytes Absolute Auto 1900 /uL (1100-4500); Lymphocytes Percent Auto 13.9 % (25-40); Mean Corpuscular Hemoglobin 30.8 PG (26-34); Mean Corpuscular Volume 90.6 fL (80-100); Monocytes Absolute Auto 1100 /uL (0-900); Monocytes Percent Auto 7.9 % (3-14); Neutrophils Absolute Auto 10700 /uL (1500-7000); Neutrophils Percent Auto 77.5 % (50-75); Platelet Count 153 X10^3/uL (150-400); Red Cell Distribution Width 13.4 % (11.6-14.8); White Blood Cell Count 13.8 X10^3/uL (4.5-11.0)
[2023-10-02 05:24] LABS: BUN Creatinine Ratio 25.9 (6-22); Blood Urea Nitrogen 21 mg/dL (9-20); Calcium 8.1 mg/dL (8.4-10.2); Carbon Dioxide 29 mmol/L (22-32); Chloride 103 mmol/L (98-107); Estimated Glomerular Filt Rate > 60 mL/min (>60); Glucose 127 mg/dL (80-110); HEMOLYSIS < 15 (0-50); Magnesium 2.2 mg/dL (1.6-2.3); Potassium 4.6 mmol/L (3.4-5.1); Sodium 136 mmol/L (137-145)
--- NOTE | 2023-10-02 07:53 | P.PN_ITS ---
Subjective Subjective Interval history: Patient was urinating and had some non-sustained runs of VT. He was asymptomatic. Mag and K normal. He is feeling much better today and was able to get up and use the restroom on his own. He thinks he'll be ok for home tomorrow with HH. Exam Vital Signs (past 8 hours): - 10/02/23 00:10 10/02/23 03:32 Temperature 98.0 F 96.8 F L Pulse Rate 62 60 Respiratory Rate 19 16 Blood Pressure 120/58 L 103/56 L Pulse Oximetry 98 95 Oxygen Delivery Method CPAP Oxygen Flow Rate 3 Narrative Exam Narrative: GEN: no acute distress, obese HEENT: moist mucous membranes, PERRL NECK: trachea midline, no JVD CV: regular rate and rhythm, no murmurs PULM: clear bilaterally ABD: soft, nontender, nondistended, no organomegaly EXT: R postop hip dressing NEURO: awake, alert, oriented, no focal deficits Objective Labs 10/02/23 04:30 10/02/23 04:30 Labs: Laboratory Results - last 24 hr 10/02/23 04:30 WBC 13.8 H RBC 3.20 L Hgb 9.8 L Hct 29.0 L MCV 90.6 MCH 30.8 MCHC 34.0 RDW 13.4 Plt Count 153 Neut % (Auto) 77.5 H Lymph % (Auto) 13.9 L [place] % (Auto) 7.9 Eos % (Auto) 0.5 L Baso % (Auto) 0.2 Neut # (Auto) 44766 H Lymph # (Auto) 1900 [place] # (Auto) 1100 H Eos # (Auto) 100 Baso # (Auto) 0 PT 13.6 H INR 1.2 Sodium 136 L Potassium 4.6 Chloride 103 Carbon Dioxide 29 BUN 21 H Creatinine 0.81 Estimated GFR > 60 BUN/Creatinine Ratio 25.9 H Glucose 127 H Calcium 8.1 L Magnesium 2.2 PFSH Medical History Bradycardia Hx of diastolic dysfunction NSVT (nonsustained ventricular tachycardia) CAD (coronary artery disease) PAF (paroxysmal atrial fibrillation) Skin cancer Chronotropic incompetence History of cardioversion HLD (hyperlipidemia) HTN (hypertension) Post-nasal drip Afib Osteoarthritis Pacemaker (~2019) LAMBERTO on CPAP Surgical History H/O arthroscopy of right knee H/O arthroscopy of left knee Hx of tonsillectomy History of biopsy Social History household members: spouse Smoking Status: Never smoker alcohol intake: former Assessment & Plan Assessment & Plan narrative: # intraoperative ST elevation -2min of ST elevation seen on monitor per anesthesia -EKG have been normal, trops neg x4 -echo reassuring with EF 60-65%, RVSP 28 and no valvular abnormalities -should have outpatient stress test arranged with his front end specialist Dr. Frederick Nails at [facility] -keep mag >2 and K >4 -tele # s/p R total hip replacement on 09/30 -management per ortho -HH with PT on discharge # h/o NSVT and A-fib s/p pacemaker -continue warfarin per pharmacy with INR goal 2-3 -continue metoprolol -had NSVT while in hospitla but asymptomatic, will f/up with outpatient cardiology regarding this # CAD -continue aspirin # HTN -continue lisinopril # HLD -continue statin Can discharge when ready from medicine standpoint. Medicine will sign off today. Thank you for allowing us to participate in the care of this patient. Should you have any further questions, do not hesitate to speak with us directly or call us. Quality VTE Deep Vein Thrombosis/Pulmonary Embolism Present on Admission: No
--- NOTE | 2023-10-02 08:52 | CM.DPNOTE ---
Addendum entered by NEW Barnes 10/02/23 14:55: From PT/provider/RN, after working with PT and speaking with provider again, pt changed mind and decided he wanted to dc home. Pt confirmed he wants to go home with spouse support. Agreeable to HH, no preference on agency. Reports can drive him home tomorrow morning and he has all the equip he needs. ANALYTICAL SCIENCES DIRECTOR completed face to face, ANALYTICAL SCIENCES DIRECTOR completed HH order. ANALYTICAL SCIENCES DIRECTOR spoke with Hanh at [facility], agreed to review and forward to ariel office for [facility]. ANALYTICAL SCIENCES DIRECTOR faxed face sheet, face to face, order, H&P, PN, PT/OT eval, and PT notes to [facility]. Acceptance pending. Face to face placed in scanning folder. Plan: home with spouse support 10/03. [facility] likely to follow pending acceptance. CM team will continue to follow closely. NEW Barnes Addendum entered by NEW Barnes 10/02/23 11:23: ANALYTICAL SCIENCES DIRECTOR spoke with Aiyana at [facility] (p [phone] email [email or web address]). Agreed to review, reports cannot accept until tomorrow. Our team would need to arrange transport. ANALYTICAL SCIENCES DIRECTOR emailed initial referral information for review. SL Original Note: DCP Note ANALYTICAL SCIENCES DIRECTOR reviewed EMR. ANALYTICAL SCIENCES DIRECTOR received VM for Patricia- case worker at [facility]. Authorized SNF stay for pt, auth #[id number]. ANALYTICAL SCIENCES DIRECTOR spoke with pt at bedside. Confirms wants to go to SNF because he cannot walk. Preference is [facility] in [facility] due to pt living in [place]. SNF search is as following [facility]- lvm with Nataly (p [phone]) [facility]- lvm with Nataly (p [phone]) [facility]- lvm with Asya (p [phone]) Franny Membreno from admissions reports can accept pt, but unable to admit anyone until 10-05 [facility] - lvm with admissions, clerical receptionist said they likely couldn't accept until 10-05 at least CM team will continue to follow closely and pursue SNF per pt preference and SNF availability. NEW Barnes
[2023-10-02] MEDS: DOCUSATE 100 MG CAPSULE PO ×2 (08:59→20:33)
[2023-10-02] MEDS: MONTELUKAST 10 MG TABLET PO (09:01)
[2023-10-02] MEDS: POTASSIUM CHLORIDE 10 MEQ TAB PO (09:02)
[2023-10-02] MEDS: PREGABALIN 50 MG CAPSULE PO ×2 (09:02→20:32)
[2023-10-02] MEDS: ASPIRIN 81 MG CHEW TAB PO (09:03)
[2023-10-02] MEDS: FUROSEMIDE 20 MG TABLET 10 MG PO (09:03)
[2023-10-02] MEDS: METOPROLOL ER 25 MG TABLET PO ×2 (09:03→20:32)
[2023-10-02] MEDS: LORATADINE 10 MG TABLET PO (09:03)
[2023-10-02] MEDS: ENOXAPARIN 40 MG/0.4 ML SYRINGE SUBCUT (09:04)
--- NOTE | 2023-10-02 10:18 | PT.IPTN ---
Current Diagnoses Unilateral primary osteoarthritis, right hip (09/30/23) Presence of unspecified artificial hip joint (09/30/23) Surgery Performed Operation Date: 09/30/23 12:45 Actual Procedures p Total Hip Arthroplasty/Anterior Approach(Right) - Neftali Tafoya MD Physical Therapy Treatment Note M2 PT-IP Current Condition Start: 10/01/23 12:27 Freq: NEEDED Status: Active Protocol: Document 10/01/23 09:00 AB (Rec: 10/01/23 12:44 AB [id number]) Physical Therapy Current Condition Current Condition Evaluation Date 10/01/23 Treatment Diagnosis s/p R HÉCTOR anterior approach; difficulty in walking Onset Date 09/30/23 M3 PT-IP Subjective Start: 10/01/23 12:27 Freq: NEEDED Status: Active Protocol: Document 10/02/23 10:36 TS (Rec: 10/02/23 10:53 TS [id number]) Subjective Physical Therapy Visit Type Type Treatment Note Visit Start Time 10:18 Visit Stop Time 10:37 Total Visit Minutes 19 Number of PICU NURSE Visits 1 Physical Therapy Visit Comments Patient Comments Pt found up with nursing, agreeable to PT. Therapy Pain Assessment Pain When Pain Assessed During Mobility Pain Present Pain Present Pain Reported M4 PT-IP Mobility and Gait Start: 10/01/23 12:27 Freq: NEEDED Status: Active Protocol: Document 10/02/23 10:36 TS (Rec: 10/02/23 10:53 TS [id number]) PT-Transfer Assessment Sit to and From Stand Sit to and from Stand Standby Assistance,1 Person Assistance,Use of Upper Extremities Equipment Transfer Assistive Device Gait Belt,Front Wheeled Walker Orthotic/Prosthetic Devices or Brace: No Comments Mobility Comments Pt ambulated ~60'SBA with step to gait, demonstrates good awareness of his hip precautions. He performed steps x3 on platform step with use of FWW CGA, pt provided cues for step sequencing. He ambulated to chair, performed sit to stand with FWW and BUE support SBA. Pt was left in chair, all needs met. Gait Assessment Gait Gait Assistance Required: Standby Assistance Distance (Feet) 60 Able to Maintain Weight Bearing Status Yes During Gait Assistive Devices Assistive Device Gait Belt,Front Wheeled Walker Orthotic/Prosthetic Devices or Brace: No Gait Deviations General Gait Pattern Antalgic,Decreased Feet Clearance Factors Limiting Gait Function Factors Limiting Gait Function Decreased Activity Tolerance, Decreased Strength,Difficulty Following Directions,Limited Range of Motion,Pain,Poor Balance,Poor Safety Awareness Comments Gait Comments See mobility comments Stair Climbing Assessment Evaluation Level of Assist On Stairs Contact Guard Assistance,1 Person Assistance Devices Stair Climbing Assistive Devices Front Wheel Walker Technique/Endurance Stair Climbing Direction Ascend and Descend Stair Climbing Technique Step to Step Number of Steps Climbed 3 Comments Stair Climbing Comments See mobility comments PT-Balance Assessment Sitting Balance and Reactions Static Sitting Balance Ability Normal Dynamic Sitting Balance Ability Good Standing Balance and Reactions Static Standing Balance Ability Good Dynamic Standing Balance Ability Good Device Used FWW M5 PT-IP Objective Assessments Start: 10/01/23 12:27 Freq: NEEDED Status: Active Protocol: Document 10/01/23 09:00 AB (Rec: 10/01/23 12:44 AB [id number]) Orientation Orientation/Cognition Level of Alertness Alert Orientation Name,Situation Language Function Ability Hard of Hearing Safety Awareness Decreased Safety Awareness Memory Description Short Term Impaired Gross Range of Motion Lower Extremity ROM Assessment Within Functional Limits Strength Lower Extremity Strength Assessment Right Impaired Hip 3-/5 Knee 4-/5 Sensation Assessment Sensation Sensation Description Numbness Comments Sensation Comments pt stated that he still has some numbness on R hip area Muscle Tone Muscle Tone WNL Yes M6 PT-IP Treatment Start: 10/01/23 12:27 Freq: NEEDED Status: Active Protocol: Document 10/02/23 10:36 TS (Rec: 10/02/23 10:53 TS [id number]) Physical Therapy Treatment Education Education Provided Precautions,Weight Bearing Status,Safety M7 PT-IP Assessment and Plan Start: 10/01/23 12:27 Freq: NEEDED Status: Active Protocol: Document 10/02/23 10:36 TS (Rec: 10/02/23 10:53 TS [id number]) PT Summary Assessment and Plan Potential Rehabilitation Potential Good Summary Impairments Pain,ROM,Strength,Balance, Coordination,Sensation,Tone, Cognition,Bed Mobility, Transfers,Gait,Activity Tolerance Progress Towards Goals Progressing Toward Goals Assessment Summary Robbie is making good progress with his mobility. He is SBA for ambulation of ~60' with use of FWW. He performed platform steps x3 with use of FWW CGA with little effort. PT is recommending Home vs SNF at this time. Pt would like to go to SNF out of concern of spouse not being able to assist him. If pt were to go home would benefit from HHPT. Goals Bed Mobility Goal Standby Assistance Transfer Goal Standby Assistance,Front Wheeled Walker Gait Goal Standby Assistance,Front Wheel Walker Gait Distance 200 Other Goals improve bed mobility, transfers and ambulation using LRAD ~ 300 ft mod I up/down 2 platform steps using FWW SBA Days to Meet Goals 5 Frequency of Treatment Frequency Of Treatment Twice a Day Treatment Plan Physical Therapy Treatment Plan Bed Mobility Training,Transfer Training,Gait Training, Therapeutic Exercise,Balance Retraining,Post Op Education, Discharge Planning,Hot or Cold Pack,Neuromuscular Re-ed, Coordination Retraining,Manual Therapy Precautions Anterior Hip Precautions No Hip Extension,No Hip External Rotation Weight Bearing Status Weight Bearing Status Weight Bear as Tolerated Allowed Weight Bearing Amount (enter % RLE WBAT or #) (%) Recommendations To Nursing Amount of Assist Needed 1 Person Assist Discharge Recommendations PT Discharge Recommendations Home with Assistance,Home Health,SNF Rehab,Home vs SNF Transportation Needs at Discharge Private Vehicle,Wheelchair/ Cabulance
--- NOTE | 2023-10-02 11:06 | PM.PNPO.1 ---
Subjective Subjective Date Patient Seen: 10/02/23 Time Patient Seen: 09:15 Interval history: Mr. Choudhury is a pleasent 78 year old male who is POD#2 s/p R HÉCTOR by Dr. Tafoya. He is sitting up in a chair and having very little pain. He states he has been doing well with PT and has good mobility, using the bathroom on his own, walking unassisted, did stairs this morning. Despite doing well overall, he reports anxiety about going home, he is concerned about getting a blood clot, his heart health or falling and his not being able to help him. He is requesting to be d/c to SNF for a few days instead of home, he reports it has been approved by his insurance already. While the pts incision was being closed at the end of his surgery, the anesthesiologist noticed a brief run of ST elevation on the monitor. Pts troponins have thus far been negative, and serial EKGs have also been normal. Pt has pacemaker and was on warfarin preoperatively; has restarted this and is also on a Lovenox bridge. Denies chest pain, SOB, nausea, vomiting, fever, chills. Exam Vital Signs (past 8 hours): - 10/02/23 03:32 10/02/23 08:49 10/02/23 09:01 Temperature 96.8 F L Pulse Rate 60 67 65 Respiratory Rate 16 Blood Pressure 103/56 L 107/62 Pulse Oximetry 95 97 Oxygen Delivery Method Room Air Oxygen Flow Rate 0 Fraction of Inspired Oxygen 21 10/02/23 09:03 10/02/23 09:33 10/02/23 10:00 Temperature Pulse Rate 65 94 H Respiratory Rate Blood Pressure Pulse Oximetry Oxygen Delivery Method Room Air Oxygen Flow Rate Fraction of Inspired Oxygen Fraction of Inspired Oxygen 21 SaO2/FiO2 Ratio 461 Oxygen Delivery Method Room Air Oxygen Flow Rate 0 Narrative Exam Narrative: Sensation to light touch intact throughout bilateral lower extremities. Calves soft, compressible, nontender bilaterally. DANIEL dressing in place over right hip, functioning, clean and dry. 1+ pitting edema to left lower extremity, no pitting edema of right lower extremity. 5/5 strength with plantar and dorsi flexion bilaterally. Resp Effort & Inspection: normal respiratory effort and able to speak in complete sentences Cardio Rate: regular rate Other: extremities appear well perfused. Objective Labs 10/02/23 04:30 10/02/23 04:30 Labs: Laboratory Results - last 24 hr 10/02/23 04:30 WBC 13.8 H RBC 3.20 L Hgb 9.8 L Hct 29.0 L MCV 90.6 MCH 30.8 MCHC 34.0 RDW 13.4 Plt Count 153 Neut % (Auto) 77.5 H Lymph % (Auto) 13.9 L [place] % (Auto) 7.9 Eos % (Auto) 0.5 L Baso % (Auto) 0.2 Neut # (Auto) 87217 H Lymph # (Auto) 1900 [place] # (Auto) 1100 H Eos # (Auto) 100 Baso # (Auto) 0 PT 13.6 H INR 1.2 Sodium 136 L Potassium 4.6 Chloride 103 Carbon Dioxide 29 BUN 21 H Creatinine 0.81 Estimated GFR > 60 BUN/Creatinine Ratio 25.9 H Glucose 127 H Calcium 8.1 L Magnesium 2.2 PFSH Medical History Bradycardia Hx of diastolic dysfunction NSVT (nonsustained ventricular tachycardia) CAD (coronary artery disease) PAF (paroxysmal atrial fibrillation) Skin cancer Chronotropic incompetence History of cardioversion HLD (hyperlipidemia) HTN (hypertension) Post-nasal drip Afib Osteoarthritis Pacemaker (~2019) LAMBERTO on CPAP Surgical History H/O arthroscopy of right knee H/O arthroscopy of left knee Hx of tonsillectomy History of biopsy Social History household members: spouse Smoking Status: Never smoker alcohol intake: former Assessment & Plan Post-op Assessment and plan (1) S/P total hip arthroplasty: Assessment and Plan narrative: s/p R HÉCTOR, c/b a brief period of ST elevation changes at the end of the case. At this point, serial troponins and EKGs have been normal. Patient is being followed by Dr Tom as well from medicine. Continue warfarin at home dosing rate: 5mg on Fridays and Tuesdays, 7.5mg on other days as well as Lovenox. WBAT to right leg, continue PT. Will need to follow up wit [facility] in 2 weeks for postop appt. Anticipate discharge home tomorrow w/ spouse vs SNF pending progress w/ PT today and medical clearance from hospitalist service. Postoperative Procedures: Procedures Operation Date: 09/30/23 12:45 Actual Procedure Side Surgeon p Total Hip Arthroplasty/Anterior Approach Right Neftali Tafoya MD Postoperative day: 2 Postoperative status: doing well Postoperative plan: routine post-op care Quality VTE Deep Vein Thrombosis/Pulmonary Embolism Present on Admission: No
[2023-10-02] MEDS: polyethylene glycoL 3350 17 GM POWD.PACK PO (11:42)
--- NOTE | 2023-10-02 13:25 | PT.IPTN ---
Current Diagnoses Unilateral primary osteoarthritis, right hip (09/30/23) Presence of unspecified artificial hip joint (09/30/23) Surgery Performed Operation Date: 09/30/23 12:45 Actual Procedures p Total Hip Arthroplasty/Anterior Approach(Right) - Neftali Tafoya MD Physical Therapy Treatment Note M2 PT-IP Current Condition Start: 10/01/23 12:27 Freq: NEEDED Status: Active Protocol: Document 10/01/23 09:00 AB (Rec: 10/01/23 12:44 AB [id number]) Physical Therapy Current Condition Current Condition Evaluation Date 10/01/23 Treatment Diagnosis s/p R HÉCTOR anterior approach; difficulty in walking Onset Date 09/30/23 M3 PT-IP Subjective Start: 10/01/23 12:27 Freq: NEEDED Status: Active Protocol: Document 10/02/23 13:46 TS (Rec: 10/02/23 13:55 TS [id number]) Subjective Physical Therapy Visit Type Type Treatment Note Visit Start Time 13:25 Visit Stop Time 13:43 Total Visit Minutes 18 Number of HOBBER Visits 2 Physical Therapy Visit Comments Patient Comments Pt found resting in chair, is agreeable to PT. Therapy Pain Assessment Pain When Pain Assessed During Mobility Pain Present Pain Present Pain Reported M4 PT-IP Mobility and Gait Start: 10/01/23 12:27 Freq: NEEDED Status: Active Protocol: Document 10/02/23 13:46 TS (Rec: 10/02/23 13:55 TS [id number]) PT-Transfer Assessment Sit to and From Stand Sit to and from Stand Standby Assistance,Use of Upper Extremities Equipment Transfer Assistive Device Gait Belt,Front Wheeled Walker Orthotic/Prosthetic Devices or Brace: No Comments Mobility Comments Sit to stand from chair with FWW SBA, pt demonstrates good carryover of STS technique. He ambulated ~150'SBA with step to gait and use of FWW. Pt ambulated back to room, stand to sit into chair SBA with use of arms fo chair for slow eccentric control, pt demonstrates good awareness with his hip precautions leading with LLE backwards. Pt was left in chair, all needs met. Gait Assessment Gait Gait Assistance Required: Standby Assistance Distance (Feet) 150 Able to Maintain Weight Bearing Status Yes During Gait Assistive Devices Assistive Device Gait Belt,Front Wheeled Walker Orthotic/Prosthetic Devices or Brace: No Gait Deviations General Gait Pattern Antalgic,Decreased Feet Clearance Factors Limiting Gait Function Factors Limiting Gait Function Decreased Activity Tolerance, Decreased Strength,Difficulty Following Directions,Limited Range of Motion,Pain,Poor Balance,Poor Safety Awareness Comments Gait Comments See mobility comments PT-Balance Assessment Sitting Balance and Reactions Static Sitting Balance Ability Normal Dynamic Sitting Balance Ability Good Standing Balance and Reactions Static Standing Balance Ability Good Dynamic Standing Balance Ability Good Device Used FWW M5 PT-IP Objective Assessments Start: 10/01/23 12:27 Freq: NEEDED Status: Active Protocol: Document 10/01/23 09:00 AB (Rec: 10/01/23 12:44 AB [id number]) Orientation Orientation/Cognition Level of Alertness Alert Orientation Name,Situation Language Function Ability Hard of Hearing Safety Awareness Decreased Safety Awareness Memory Description Short Term Impaired Gross Range of Motion Lower Extremity ROM Assessment Within Functional Limits Strength Lower Extremity Strength Assessment Right Impaired Hip 3-/5 Knee 4-/5 Sensation Assessment Sensation Sensation Description Numbness Comments Sensation Comments pt stated that he still has some numbness on R hip area Muscle Tone Muscle Tone WNL Yes M6 PT-IP Treatment Start: 10/01/23 12:27 Freq: NEEDED Status: Active Protocol: Document 10/02/23 13:46 TS (Rec: 10/02/23 13:55 TS [id number]) Physical Therapy Treatment Education Education Provided Precautions,Weight Bearing Status,Safety M7 PT-IP Assessment and Plan Start: 10/01/23 12:27 Freq: NEEDED Status: Active Protocol: Document 10/02/23 13:46 TS (Rec: 10/02/23 13:55 TS [id number]) PT Summary Assessment and Plan Potential Rehabilitation Potential Good Summary Impairments Pain,ROM,Strength,Balance, Coordination,Sensation,Tone, Cognition,Bed Mobility, Transfers,Gait,Activity Tolerance Progress Towards Goals Progressing Toward Goals Assessment Summary Robbie continues to make good progress with his mobility. He is SBA for sit to stand with use of FWW and demonstrates good carryover STS technique. He progressed his gait to ~150 'SBA with step to gait. He has good safety awareness with his mobility and demonstrates good recall of hip precautions . PT is recommending Home vs SNF. Pt would like to go SNF before d/c home. Goals Bed Mobility Goal Standby Assistance Transfer Goal Standby Assistance,Front Wheeled Walker Gait Goal Standby Assistance,Front Wheel Walker Gait Distance 200 Other Goals improve bed mobility, transfers and ambulation using LRAD ~ 300 ft mod I up/down 2 platform steps using FWW SBA Days to Meet Goals 5 Frequency of Treatment Frequency Of Treatment Twice a Day Treatment Plan Physical Therapy Treatment Plan Bed Mobility Training,Transfer Training,Gait Training, Therapeutic Exercise,Balance Retraining,Post Op Education, Discharge Planning,Hot or Cold Pack,Neuromuscular Re-ed, Coordination Retraining,Manual Therapy Precautions Anterior Hip Precautions No Hip Extension,No Hip External Rotation Weight Bearing Status Weight Bearing Status Weight Bear as Tolerated Allowed Weight Bearing Amount (enter % RLE WBAT or #) (%) Recommendations To Nursing Amount of Assist Needed 1 Person Assist Discharge Recommendations PT Discharge Recommendations Home with Assistance,Home Health,SNF Rehab,Home vs SNF Transportation Needs at Discharge Private Vehicle,Wheelchair/ Cabulance
[2023-10-02] MEDS: OXYCODONE IR 5 MG TABLET PO ×2 (16:22→20:33)
[2023-10-02] MEDS: WARFARIN 2.5 MG TABLET 7.5 MG PO (17:09)
[2023-10-02] MEDS: FLUTICASONE 120 SPRAY/16 GM SPRAY.SUSP NASAL (20:30)
[2023-10-02] MEDS: ATORVASTATIN 20 MG TABLET 40 MG PO (20:32)
[2023-10-03 00:01] VITALS: PULSE 66
[2023-10-03] MEDS: OXYCODONE IR 5 MG TABLET PO ×3 (01:18→11:13)
[2023-10-03 01:43] VITALS: TEMP 37.2
[2023-10-03] MEDS: ACETAMINOPHEN 325 MG TABLET 650 MG PO ×2 (01:43→09:21)
[2023-10-03 04:26] VITALS: BP 114/60; PULSE 62; RESP 16; TEMP 36.9; O2SAT 96
[2023-10-03 05:04] LABS: Add Manual Diff / Slide Review NO; Basophils Absolute Auto 100 /uL (0-100); Basophils Percent Auto 0.6 % (0-2); Eosinophils Absolute Auto 200 /uL (0-450); Eosinophils Percent Auto 1.4 % (2-4); Hematocrit 27.6 % (41-53); Hemoglobin 9.5 g/dL (13.5-17.5); Lymphocytes Absolute Auto 2400 /uL (1100-4500); Lymphocytes Percent Auto 19.2 % (25-40); Mean Corpuscular HGB Conc 34.4 % (30-36); Mean Corpuscular Volume 90.1 fL (80-100); Monocytes Absolute Auto 1000 /uL (0-900); Monocytes Percent Auto 8.4 % (3-14); Neutrophils Absolute Auto 8600 /uL (1500-7000); Neutrophils Percent Auto 70.4 % (50-75); Platelet Count 168 X10^3/uL (150-400); Red Blood Cell Count 3.06 X10^6/uL (4.5-5.9); Red Cell Distribution Width 13.5 % (11.6-14.8); White Blood Cell Count 12.3 X10^3/uL (4.5-11.0)
[2023-10-03 05:09] LABS: INR 1.2 (0.9-1.3); Prothrombin Time 13.9 SECONDS (9.4-12.5)
[2023-10-03 05:15] LABS: BUN Creatinine Ratio 20.5 (6-22); Blood Urea Nitrogen 15 mg/dL (9-20); Calcium 8.4 mg/dL (8.4-10.2); Carbon Dioxide 29 mmol/L (22-32); Chloride 104 mmol/L (98-107); Estimated Glomerular Filt Rate > 60 mL/min (>60); Glucose 110 mg/dL (80-110); HEMOLYSIS < 15 (0-50); Potassium 4.1 mmol/L (3.4-5.1); Sodium 136 mmol/L (137-145)
[2023-10-03 05:18] LABS: Magnesium 2.1 mg/dL (1.6-2.3)
--- NOTE | 2023-10-03 08:51 | CM.DPC ---
DCP Cont. Reviewed EMR and spoke with floor RN. Met with Ortho PACrystal to discuss plan for d/c. Plan is for pt to d/c home with transporting at 11:00am. No further DCP needs indicated at this time.
--- NOTE | 2023-10-03 09:04 | PM.DS.1 ---
History of Present Illness History of Present Illness Date Patient Seen: 10/03/23 Time Patient Seen: 08:55 Chief complaint: Right Total Hip Arthroplasty/Anterior Narrative: Operative Date/Time/Diagnoses Date of procedure: 09/30/23 Pre-op diagnosis: Right hip arthritis Post-op diagnosis: same Procedure & Clinicians Procedure: Right total hip arthroplasty (96307) Same procedure as scheduled: Yes Surgeon: Neftali Tafoya Booster Pump Operator: Feliciano Goodrich Anesthesia Type: Spinal, Sedation and Local Mr. Choudhury is a pleasent 78 year old male who is POD#3 s/p R HÉCTOR by Dr. Tafoya. States he is doing well and is ready to be d/c to home today. can pick him up at 11:00am today. He was approved for home health and case management has arranged for this service when patient is d/c to home. Has no issues with urinating, has not passed a BM yet. Progressing well with PT, able to walk on his own with the aid of a walker and use stairs. Reports his anxiety surrounding his heart is improving and he slept better last night. Pain is well controlled with topical ice, Tylenol, Oxycodone. Has postop PT appts already scheduled. Denies chest pain, SOB, nausea, vomiting, fever, chills. Discharge Providers Provider Date of admission: 09/30/23 19:41 Discharge Date: 10/03/23 Primary care physician: Luis Enrique Paul MD Consults: 09/30/23 06:00 Consult to Anesthesiology Routine Comment: Consulting Provider: Anesthesiologist Reason for consultation: Regional block for post operative pain control 09/30/23 20:01 Consult to Discharge Planning Routine Comment: Consult to Occupational Therapy Evaluate & Treat Comment: Physician Instructions: Evaluate and treat Consult to Physical Therapy Evaluate & Treat Comment: Physician Instructions: post op HÉCTOR protocol 09/30/23 21:07 Consult to Cardiology Routine Comment: Consulting Provider: Keila Knowles Reason for consultation: ST elevations during surgery Has provider been notified: Yes 10/01/23 07:50 Consult to Hospitalist Service Routine Comment: Consulting Provider: Neftali Tafoya Reason for consultation: ST elevation during surgery, step-down from ICU Has provider been notified: Yes 10/01/23 08:11 Consult to Hospitalist Service Routine Comment: Consulting Provider: Jin Tom Reason for consultation: ST elevation intraop 10/02/23 14:33 Consult to Home Health Routine Comment: Reason For Exam: RN/PT/OT Discharge provider: Crystal Carver PA-C Summary Hospital Course Discharge Diagnosis: Right hip arthritis s/p right HÉCTOR Hospital Course: Hospital course complicated by a brief period of ST elevation changes at the end of his surgery on 09/30/23. At this point, serial troponins and EKGs have been normal. Medicine service was consulted and anticoagulation has since been re-started. Exam Vital Signs (past 8 hours): - 10/03/23 01:43 10/03/23 04:26 Temperature 98.9 F 98.4 F Pulse Rate 62 Respiratory Rate 16 Blood Pressure 114/60 Pulse Oximetry 96 Fraction of Inspired Oxygen 21 SaO2/FiO2 Ratio 461 Oxygen Delivery Method Room Air Oxygen Flow Rate 0 Narrative Exam Narrative: Sensation to light touch intact throughout bilateral lower extremities. Calves soft, compressible, nontender bilaterally. DANIEL dressing in place over right hip, functioning, clean and dry. 1+ pitting edema to left lower extremity, no pitting edema of right lower extremity. 5/5 strength with plantar and dorsi flexion bilaterally. Active ROM of right knee limited by hip pain. Resp Effort & Inspection: normal respiratory effort and able to speak in complete sentences Cardio Rate: regular rate Other: extremities appear well perfused. Objective Labs 10/03/23 04:10 10/03/23 04:10 Labs: Laboratory Results - last 24 hr 10/03/23 04:10 WBC 12.3 H RBC 3.06 L Hgb 9.5 L Hct 27.6 L MCV 90.1 MCH 31.0 MCHC 34.4 RDW 13.5 Plt Count 168 Neut % (Auto) 70.4 Lymph % (Auto) 19.2 L Bollinger % (Auto) 8.4 Eos % (Auto) 1.4 L Baso % (Auto) 0.6 Neut # (Auto) 8600 H Lymph # (Auto) 2400 [place]linger # (Auto) 1000 H Eos # (Auto) 200 Baso # (Auto) 100 PT 13.9 H INR 1.2 Sodium 136 L Potassium 4.1 Chloride 104 Carbon Dioxide 29 BUN 15 Creatinine 0.73 Estimated GFR > 60 BUN/Creatinine Ratio 20.5 Glucose 110 Calcium 8.4 Magnesium 2.1 [facility] Medical History Bradycardia Hx of diastolic dysfunction NSVT (nonsustained ventricular tachycardia) CAD (coronary artery disease) PAF (paroxysmal atrial fibrillation) Skin cancer Chronotropic incompetence History of cardioversion HLD (hyperlipidemia) HTN (hypertension) Post-nasal drip Afib Osteoarthritis Pacemaker (~2019) LAMBERTO on CPAP Surgical History H/O arthroscopy of right knee H/O arthroscopy of left knee Hx of tonsillectomy History of biopsy Social History household members: spouse Smoking Status: Never smoker alcohol intake: former Discharge Assessment & Plan Assessment and Plan Assessment: Stable s/p R HÉCTOR Plan of Treatment: Routine postop care: keep dressing intact until 2 week postop appt with [facility]. Keep dressing clean and dry. Weight bear as tolerated, anterior hip precautions. Continue anticoagulation per medicine and multimodal pain control. Continue to improve mobility with postop PT. Follow up at [facility] on October 14, 2023 at 3:00pm. Discharge Plan Discharge Plan Patient Disposition: Home Health Service Provider Discharge Comment: Please see the following link for Dr Tafoya's post-op instructions. Can also search 'Neftali Tafoya Total Hip Replacement 3' on [employer] or [employer]. [email or web address] Follow up at [facility] on October 14, 2023 at 3:00pm. Discharge orders & Medications Prescriptions: New acetaminophen 325 mg Tablet 650 mg PO Q6H Qty: 120 0RF docusate sodium 100 mg Capsule 100 mg PO BID PRN (Reason: constipation) Qty: 30 0RF oxycodone 5 mg Tablet 5 mg PO Q4-6H PRN (Reason: Pain, Moderate (4-6)) Qty: 40 0RF Continued atorvastatin 40 mg Tablet 40 mg PO BEDTIME potassium chloride 10 mEq Capsule, Extended Release 10 meq PO DAILY Patient Comments: Pt alternates 10meq with 5meq daily acetaminophen 500 mg Tablet 1,000 mg PO Q6H PRN (Reason: Pain) warfarin 5 mg Tablet 5 mg PO DIRECTED montelukast 10 mg Tablet 10 mg PO DAILY lisinopril 5 mg Tablet 5 mg PO DAILY furosemide 20 mg Tablet 10 mg PO DAILY metoprolol succinate 25 mg Tablet Extended Release 24 Hr 25 mg PO BID fluticasone propionate 50 mcg/actuation [place],Suspension 2 spray INTRANASAL BEDTIME Rx Instructions: administer into each nostril loratadine 10 mg Tablet 10 mg PO DAILY pregabalin 50 mg Capsule 50 mg PO BID aspirin 81 mg Capsule 81 mg PO DAILY Follow up/Referrals: Luis Enrique Paul MD [Primary Care Provider] - Neftali Tafoya MD [Physician] - As previously scheduled (Follow up w/ Casey Evangelista PA-C, on 10/14/2022 @ 3:00 pm at [facility] office in [place].) Diet/Activity/Treatments Diet: Diet as Tolerated Activity: Weightbearing as tolerated to right leg. Anterior hip precautions. Cold/Heat Therapy: Ice to hip as needed for pain. Skin/Wound/Dressing Care Report to your healthcare provider any signs of infection, such as:: chills, fever, night sweats, unusual drainage and unusual redness Dressing: May shower. Leave dressing in place until follow up in office. Batteries will in 5-7 days, at which point you can cut off the battery pack and dispose of it. No bathing or otherwise soaking incision. Do not apply any creams, lotions, or ointments to incision. Visit Report/Discharge Packet Instructions: DI for Hip Replacement, DI for Prescription Opioid Use Stand Alone Forms: Patient Portal/API, Stroke Signs & Symptoms Discharge Data Primary Care Provider: Luis Enrique Paul Quality VTE Deep Vein Thrombosis/Pulmonary Embolism Present on Admission: No
[2023-10-03] MEDS: POTASSIUM CHLORIDE 10 MEQ TAB PO (09:18)
[2023-10-03] MEDS: PREGABALIN 50 MG CAPSULE PO (09:18)
[2023-10-03] MEDS: FUROSEMIDE 20 MG TABLET 10 MG PO (09:18)
[2023-10-03] MEDS: MONTELUKAST 10 MG TABLET PO (09:18)
[2023-10-03] MEDS: ASPIRIN 81 MG CHEW TAB PO (09:18)
[2023-10-03] MEDS: LORATADINE 10 MG TABLET PO (09:18)
[2023-10-03] MEDS: ENOXAPARIN 40 MG/0.4 ML SYRINGE SUBCUT (09:18)
[2023-10-03] MEDS: DOCUSATE 100 MG CAPSULE PO (09:18)
[2023-10-03 09:24] VITALS: BP 121/65; PULSE 62
[2023-10-03] MEDS: lisinopriL 5 MG TABLET PO (09:24)
[2023-10-03] MEDS: METOPROLOL ER 25 MG TABLET PO (09:24)
--- NOTE | 2023-10-03 10:40 | PT.IPTN ---
Current Diagnoses Unilateral primary osteoarthritis, right hip (09/30/23) Presence of unspecified artificial hip joint (09/30/23) Surgery Performed Operation Date: 09/30/23 12:45 Actual Procedures p Total Hip Arthroplasty/Anterior Approach(Right) - Neftali Tafoya MD Physical Therapy Treatment Note M2 PT-IP Current Condition Start: 10/01/23 12:27 Freq: NEEDED Status: Active Protocol: Document 10/01/23 09:00 AB (Rec: 10/01/23 12:44 AB [id number]) Physical Therapy Current Condition Current Condition Evaluation Date 10/01/23 Treatment Diagnosis s/p R HÉCTOR anterior approach; difficulty in walking Onset Date 09/30/23 M3 PT-IP Subjective Start: 10/01/23 12:27 Freq: NEEDED Status: Active Protocol: Document 10/03/23 10:50 NM (Rec: 10/03/23 11:07 NM [id number]) Subjective Physical Therapy Visit Type Type Treatment Note Visit Start Time 10:15 Visit Stop Time 10:40 Total Visit Minutes 25 Physical Therapy Visit Comments Patient Comments Pt found supine in bed with HOB elevated, agrees to participate in PT. Therapy Pain Assessment Pain When Pain Assessed During Mobility Pain Present Pain Present Pain Reported Location Right Hip Scale Used pain scale not stated Pain Management Techniques Apply Cold,Re-positioning M4 PT-IP Mobility and Gait Start: 10/01/23 12:27 Freq: NEEDED Status: Active Protocol: Document 10/03/23 10:50 NM (Rec: 10/03/23 11:07 NM [id number]) PT-Bed Mobility Assessment Rolling Type of Rolling Bilateral Level of Assist Standby Assistance Supine to Sit Supine to Sit Standby Assistance Scooting Scooting to Edge of Bed Standby Assistance PT-Transfer Assessment Sit to and From Stand Sit to and from Stand Standby Assistance,1 Person Assistance,Use of Upper Extremities Equipment Transfer Assistive Device Gait Belt,Front Wheeled Walker Orthotic/Prosthetic Devices or Brace: No Transfers Transfer Destination Chair Transfer Technique Ambulated Transfer Ability Level of Assist Standby Assistance,1 Person Assistance,Use of Upper Extremities Comments Mobility Comments Pt supine in bed with HOB elevated. Pt reports he is to d/c to home today. SBA for rolling and supine > sit without bed rails rails. Requires min cue for proximity to EOB. Pt reviewed and aware of anterior hip precautions. SBA to FWW during STS, RLE slightly fwd to maintain precautions. Gait Assessment Gait Gait Assistance Required: Standby Assistance Distance (Feet) 25 Able to Maintain Weight Bearing Status Yes During Gait Assistive Devices Assistive Device Gait Belt,Front Wheeled Walker Orthotic/Prosthetic Devices or Brace: No Gait Deviations General Gait Pattern Antalgic,Decreased Stride Length,Decreased Feet Clearance Factors Limiting Gait Function Factors Limiting Gait Function Decreased Activity Tolerance, Decreased Strength,Difficulty Following Directions,Limited Range of Motion,Pain,Poor Balance,Poor Safety Awareness Comments Gait Comments Pt ambulated x25 ft SBA using FWW to window then to chair, declined ambulating further due to d/c later today. Demos decreased R foot clearance, decrasd step length with LLE, antalgic gait. SBA for stand > sit in chair. PT assisted pt to don pants and shoes in sitting while maintaining hip precautions. Pt sit<>stand SBA to don pants, CGA for standing balance to steady. Pt left sitting in chair with call light in reach, chair alarm activated and nursing staff present. Stair Climbing Assessment Comments Stair Climbing Comments Declined to perform stairs PT-Balance Assessment Sitting Balance and Reactions Static Sitting Balance Ability Normal Dynamic Sitting Balance Ability Good Standing Balance and Reactions Static Standing Balance Ability Good Dynamic Standing Balance Ability Good Device Used FWW M5 PT-IP Objective Assessments Start: 10/01/23 12:27 Freq: NEEDED Status: Active Protocol: Document 10/01/23 09:00 AB (Rec: 10/01/23 12:44 AB [id number]) Orientation Orientation/Cognition Level of Alertness Alert Orientation Name,Situation Language Function Ability Hard of Hearing Safety Awareness Decreased Safety Awareness Memory Description Short Term Impaired Gross Range of Motion Lower Extremity ROM Assessment Within Functional Limits Strength Lower Extremity Strength Assessment Right Impaired Hip 3-/5 Knee 4-/5 Sensation Assessment Sensation Sensation Description Numbness Comments Sensation Comments pt stated that he still has some numbness on R hip area Muscle Tone Muscle Tone WNL Yes M6 PT-IP Treatment Start: 10/01/23 12:27 Freq: NEEDED Status: Active Protocol: Document 10/03/23 10:50 NM (Rec: 10/03/23 11:07 NM [id number]) Physical Therapy Treatment Education Education Provided Precautions,Weight Bearing Status,Safety M7 PT-IP Assessment and Plan Start: 10/01/23 12:27 Freq: NEEDED Status: Active Protocol: Document 10/03/23 10:50 NM (Rec: 10/03/23 11:07 NM [id number]) PT Summary Assessment and Plan Potential Rehabilitation Potential Good Summary Impairments Pain,ROM,Strength,Balance, Coordination,Sensation,Tone, Cognition,Bed Mobility, Transfers,Gait,Activity Tolerance Progress Towards Goals Progressing Toward Goals Assessment Summary Pt progressing with mobility. SBA for bed mobility, gait with FWW, and transfers with FWW. CGA to steady for standing balance while donning pants. He is aware of his hip precautions and demos good understanding/safety awareness during mobility. Pt declined ambulating further than 25 ft SBA with FWW or stairs due to anticipated discharge later today. PT recommending discharge to home with assistance vs SNF. Goals Bed Mobility Goal Standby Assistance Transfer Goal Standby Assistance,Front Wheeled Walker Gait Goal Standby Assistance,Front Wheel Walker Gait Distance 200 Other Goals improve bed mobility, transfers and ambulation using LRAD ~ 300 ft mod I up/down 2 platform steps using FWW SBA Days to Meet Goals 5 Frequency of Treatment Frequency Of Treatment Twice a Day Treatment Plan Physical Therapy Treatment Plan Bed Mobility Training,Transfer Training,Gait Training, Therapeutic Exercise,Balance Retraining,Post Op Education, Discharge Planning,Hot or Cold Pack,Neuromuscular Re-ed, Coordination Retraining,Manual Therapy Precautions Anterior Hip Precautions No Hip Extension,No Hip External Rotation Weight Bearing Status Weight Bearing Status Weight Bear as Tolerated Allowed Weight Bearing Amount (enter % RLE WBAT or #) (%) Recommendations To Nursing Amount of Assist Needed Independent Discharge Recommendations PT Discharge Recommendations Home with Assistance,Home Health,SNF Rehab,Home vs SNF Transportation Needs at Discharge Private Vehicle,Wheelchair/ Cabulance
== END 2023-10-03 11:21 | disposition home health service (06) | DRG 470 ==
LOC: OR 19:43 → ICU 19:43
PROVIDERS: Student in an Organized Health Care Education/Training Program; Admitting Provider Orthopaedic Surgery Adult Reconstructive Orthopaedic Surgery; PCP Family Medicine; Referring Provider Orthopaedic Surgery Adult Reconstructive Orthopaedic Surgery; Visit Provider Orthopaedic Surgery Adult Reconstructive Orthopaedic Surgery
PROC: 0SR90JA Replacement of Right Hip Joint with Synthetic Substitute, Uncemented, Open Approach (ICD-10-PCS; CPT 27130; principal; 2023-09-30 12:45)
DX: M16.11 Unilateral primary osteoarthritis, right hip (principal); I47.20 Ventricular tachycardia, unspecified; I25.10 Atherosclerotic heart disease of native coronary artery without angina pectoris; I10 Essential (primary) hypertension; E78.5 Hyperlipidemia, unspecified; I48.91 Unspecified atrial fibrillation; G47.33 Obstructive sleep apnea (adult) (pediatric); Z95.0 Presence of cardiac pacemaker; Z79.01 Long term (current) use of anticoagulants
CPT/HCPCS: 36415; 36592; 73502; 76000; 80048; 80053; 82550; 83735; 84484; 85014; 85018; 85025; 85610; 86850; 86900; 86901; 87797; 93005; 93010; 93306; 97116; 97162; 97165; 97530; 97535; C1776; J0690; J1100; J1170; J1200; J1650; J1885; J2250; J2274; J2405; J2704; J3010; J3475